=== PATIENT | male | born 1950 | race Caucasian/White ===

== ENCOUNTER 2016-03-07 09:54 | Outpatient (CLI) | payer BC ==
[~2016-03-07 09:54] MED LIST: /FELO5TASR PO; /MESA40TAB PO; /METO25TAB PO; ALLO300T2 PO; ATOR40TA PO; AZAT50TA PO; CALC600T7 PO; CALCTAB68 PO; CARV12.5 PO; CARVEDILOL; CENTTAB PO; CHLO25TA3 PO; CORE25TA PO; INFL10VL IV; LIAL1.2T PO; LOSA100T36 PO; MULTTAB4 PO; OMEG100011 PO; POTA20PO4 PO; POTA20TA PO; PRAD150C PO; PRED20TA PO; PRED5SOL2 PO; PROBCAP4 PO; SPIR25TA2 PO; TYLE325T5 PO; VALA1TAB PO; VIAG100T PO; diphenhydrAMINE 25 MG CAP PO SCH
[2016-03-07] MEDS ORDERED: inFLIXimab INJECTION 400 MG in NS 210 ML IV ONE (10:15)
[2016-03-07] MEDS ORDERED: ACETAMINOPHEN TAB 650MG DOSE (2X325MG) PO ONE (10:15)
[2016-03-07] MEDS ORDERED: NS 1,000 ML IV SCH (10:15)
== END 2016-03-07 13:00 | disposition home or self-care (01) ==
LOC: M INFU 09:54
PROVIDERS: ATTEND Internal Medicine
DX: K51.50 Left sided colitis without complications (principal); Z79.899 Other long term (current) drug therapy
CPT/HCPCS: 96413; 96415; J1745

== ENCOUNTER 2016-05-03 10:31 | Outpatient (CLI) | payer BC ==
[2016-05-03] MEDS ORDERED: NS 1,000 ML IV SCH (10:45)
[2016-05-03] MEDS ORDERED: inFLIXimab INJECTION 400 MG in NS 210 ML IV ONE (11:00)
[2016-05-03] MEDS ORDERED: ACETAMINOPHEN TAB 650MG DOSE (2X325MG) PO ONE (11:00)
== END 2016-05-03 13:45 | disposition home or self-care (01) ==
LOC: M INFU 10:31
PROVIDERS: ATTEND Internal Medicine Nephrology
DX: K51.50 Left sided colitis without complications (principal); I10 Essential (primary) hypertension; E78.5 Hyperlipidemia, unspecified; R00.9 Unspecified abnormalities of heart beat; M19.90 Unspecified osteoarthritis, unspecified site; Z72.0 Tobacco use; Z79.01 Long term (current) use of anticoagulants; Z79.899 Other long term (current) drug therapy
CPT/HCPCS: 96413; 96415; J1745

== ENCOUNTER → 2016-06-08 | Outpatient (CLI) | payer MEDICARE ==
[~2016-06-08] MED LIST changes: -diphenhydrAMINE 25 MG CAP PO SCH
[2016-06-08 19:57] LABS: MEAN CORPUSCULAR HEMOGLOBIN 31.9 pg (27.0-33.0); MEAN CORPUSCULAR HGB CONC 33.5 g/dl (32.0-36.5); MEAN CORPUSCULAR VOLUME 95.3 fl (80.0-96.0); RED CELL DISTRIBUTION WIDTH 13.3 % (11.5-14.5); WHITE BLOOD COUNT 5.8 K/mm3 (4.0-10.0)
[2016-06-08 20:03] LABS: INR 1.09
== END ==
LOC: M WUC 16:33
PROVIDERS: ATTEND Physician Assistant
DX: I48.2 Chronic atrial fibrillation (principal)

== ENCOUNTER → 2016-06-15 | Outpatient (CLI) | payer MEDICARE ==
[2016-06-15 13:34] LABS: INR 1.52
== END ==
LOC: M WUC 09:14
PROVIDERS: ATTEND Physician Assistant
DX: Z51.81 Encounter for therapeutic drug level monitoring (principal); Z79.01 Long term (current) use of anticoagulants; I48.2 Chronic atrial fibrillation

== ENCOUNTER 2016-06-28 09:54 | Outpatient (CLI) | payer MEDICARE ==
[~2016-06-28] VITALS: Ht 175.3 cm; Wt 90.7 kg
[~2016-06-28 09:54] MED LIST changes: +CARVEDILOL PO; +diphenhydrAMINE 25 MG CAP PO SCH
[2016-06-28] MEDS ORDERED: NS 1,000 ML IV SCH (10:00)
[2016-06-28] MEDS ORDERED: ACETAMINOPHEN TAB 650MG DOSE (2X325MG) PO ONE (10:00)
[2016-06-28] MEDS ORDERED: inFLIXimab INJECTION 400 MG in NS 210 ML IV ONE (10:00)
[2016-06-28] MEDS ORDERED: COUM1TAB17 PO (13:20)
[2016-06-28] MEDS ORDERED: CHLO125TA PO (13:25)
[2016-06-28] MEDS ORDERED: ASPI1TAB PO (13:25)
[2016-06-28] MEDS ORDERED: LOPR1TAB6 PO (13:26)
== END 2016-06-28 12:30 | disposition home or self-care (01) ==
LOC: M INFU 09:54
PROVIDERS: ATTEND Internal Medicine
DX: K51.50 Left sided colitis without complications (principal); Z72.0 Tobacco use; Z79.899 Other long term (current) drug therapy
CPT/HCPCS: 96413; 96415; J1745

== ENCOUNTER → 2016-06-29 | Outpatient (REF) | payer MEDICARE ==
[~2016-06-29] MED LIST changes: +ASPI1TAB PO; +CHLO125TA PO; +COUM1TAB17 PO; +LOPR1TAB6 PO; -diphenhydrAMINE 25 MG CAP PO SCH
[2016-06-29 13:46] LABS: INR 3.27
== END ==
LOC: M LAB REF 12:41
PROVIDERS: ATTEND Internal Medicine
DX: I48.2 Chronic atrial fibrillation (principal)

== ENCOUNTER → 2016-07-06 | Outpatient (REF) | payer MEDICARE ==
[2016-07-06 12:06] LABS: MEAN CORPUSCULAR HEMOGLOBIN 31.9 pg (27.0-33.0); MEAN CORPUSCULAR HGB CONC 34.1 g/dl (32.0-36.5); MEAN CORPUSCULAR VOLUME 93.7 fl (80.0-96.0); RED CELL DISTRIBUTION WIDTH 13.7 % (11.5-14.5); WHITE BLOOD COUNT 4.6 K/mm3 (4.0-10.0)
[2016-07-06 12:37] LABS: ALBUMIN 3.9 GM/DL (3.2-5.2); ANION GAP 6 MEQ/L (8-16); BLOOD UREA NITROGEN 20 MG/DL (7-18); CALCIUM LEVEL 9.7 MG/DL (8.8-10.2); CARBON DIOXIDE LEVEL 30 MEQ/L (21-32); CHLORIDE LEVEL 102 MEQ/L (98-107); CREATININE FOR GFR 0.93 MG/DL (0.70-1.30); GLOMERULAR FILTRATION RATE > 60.0 (>49); GLUCOSE, FASTING 96 MG/DL (80-110); PHOSPHORUS LEVEL 3.2 MG/DL (2.5-4.9); POTASSIUM SERUM 4.5 MEQ/L (3.5-5.1); SODIUM LEVEL 138 MEQ/L (136-145)
== END ==
LOC: M CARPUL 11:52
PROVIDERS: ATTEND Physician Assistant
DX: I10 Essential (primary) hypertension (principal)

== ENCOUNTER → 2016-07-12 | Outpatient (REF) | payer MEDICARE ==
[2016-07-12 13:57] LABS: INR 2.95
== END ==
LOC: M LAB REF 12:30
PROVIDERS: ATTEND Internal Medicine
DX: I48.2 Chronic atrial fibrillation (principal); Z51.81 Encounter for therapeutic drug level monitoring; Z79.01 Long term (current) use of anticoagulants

== ENCOUNTER → 2016-07-13 | Outpatient (RCR) | payer MEDICARE | LOC: M CR 06-13 08:15 | PROVIDERS: ATTEND Physician Assistant | DX: Z51.89 Encounter for other specified aftercare (principal); Z95.2 Presence of prosthetic heart valve ==

== ENCOUNTER → 2016-07-15 | Outpatient (REF) | payer MEDICARE | LOC: M LAB REF 09:46 | PROVIDERS: ATTEND Physician Assistant | DX: Z12.11 Encounter for screening for malignant neoplasm of colon (principal); I48.2 Chronic atrial fibrillation ==

== ENCOUNTER 2016-07-20 10:30 | Outpatient (RCR) | payer MEDICARE ==
[2016-12-13] MEDS ORDERED: IMUR50TA6 PO (11:02)
[2016-12-13] MEDS ORDERED: PROBCAP4 PO (11:03)
[2016-12-13] MEDS ORDERED: SILD20TA11 PO (11:13)
== END 2016-08-12 ==
LOC: M CR 10:30
PROVIDERS: ATTEND Physician Assistant
DX: Z51.89 Encounter for other specified aftercare (principal); Z95.2 Presence of prosthetic heart valve

== ENCOUNTER → 2016-08-03 | Outpatient (REF) | payer MEDICARE ==
[2016-08-03 14:16] LABS: INR 2.41
== END ==
LOC: M LAB REF 12:41
PROVIDERS: ATTEND Internal Medicine
DX: Z51.81 Encounter for therapeutic drug level monitoring (principal); Z79.01 Long term (current) use of anticoagulants; I48.2 Chronic atrial fibrillation

== ENCOUNTER 2016-08-15 08:57 | Outpatient (RCR) | payer MEDICARE ==
[2016-12-13] MEDS ORDERED: IMUR50TA6 PO (11:02)
[2016-12-13] MEDS ORDERED: PROBCAP4 PO (11:03)
[2016-12-13] MEDS ORDERED: SILD20TA11 PO (11:13)
== END 2016-09-12 ==
LOC: M CR 08:57
PROVIDERS: ATTEND Physician Assistant
DX: Z51.89 Encounter for other specified aftercare (principal); Z95.2 Presence of prosthetic heart valve

== ENCOUNTER → 2016-08-17 | Outpatient (CLI) | payer MEDICARE ==
[~2016-08-17] MED LIST changes: +IMUR50TA6 PO; +SILD20TA11 PO
--- NOTE | 2016-08-17 19:51 | REP ---
CHEST, TWO VIEWS: HISTORY: Chest pain. A calcified granuloma is present in the left upper lobe. The right lung is clear. The heart is upper limits of normal in size. The pulmonary vasculature is normal in appearance. Degenerative change is present in the thoracic spine. IMPRESSION: Old granulomatous disease. Signed by Trevor Herndon MD 08/17/2016 07:56 P
== END ==
LOC: M WUC 19:12
PROVIDERS: ATTEND Physician Assistant
DX: R07.1 Chest pain on breathing (principal); J98.4 Other disorders of lung

== ENCOUNTER → 2016-08-19 | Outpatient (REF) | payer MEDICARE | LOC: M LAB REF 12:40 | PROVIDERS: ATTEND Internal Medicine | DX: R94.5 Abnormal results of liver function studies (principal); K51.50 Left sided colitis without complications ==

== ENCOUNTER 2016-08-23 09:59 | Outpatient (CLI) | payer MEDICARE ==
[~2016-08-23] VITALS: Ht 149.9 cm; Wt 90.9 kg
[~2016-08-23 09:59] MED LIST changes: -IMUR50TA6 PO; -SILD20TA11 PO; +diphenhydrAMINE 25 MG CAP PO SCH
[2016-08-23] MEDS ORDERED: NS 1,000 ML IV SCH (10:45)
[2016-08-23] MEDS ORDERED: ACETAMINOPHEN TAB 650MG DOSE (2X325MG) PO ONE (10:45)
[2016-08-23] MEDS ORDERED: inFLIXimab INJECTION 400 MG in NS 210 ML IV ONE (10:45)
[2016-12-13] MEDS ORDERED: IMUR50TA6 PO (11:02)
[2016-12-13] MEDS ORDERED: PROBCAP4 PO (11:03)
[2016-12-13] MEDS ORDERED: SILD20TA11 PO (11:13)
== END 2016-08-23 13:30 | disposition home or self-care (01) ==
LOC: M INFU 09:59
PROVIDERS: ATTEND Internal Medicine Nephrology
DX: K51.50 Left sided colitis without complications (principal); Z72.0 Tobacco use; Z79.899 Other long term (current) drug therapy
CPT/HCPCS: 96365; 96366; J1745

== ENCOUNTER → 2016-09-07 | Outpatient (REF) | payer MEDICARE ==
[~2016-09-07] MED LIST changes: +IMUR50TA6 PO; +SILD20TA11 PO; -diphenhydrAMINE 25 MG CAP PO SCH
[2016-09-07 13:48] LABS: INR 3.01
== END ==
LOC: M LAB REF 13:23
PROVIDERS: ATTEND Internal Medicine
DX: I48.2 Chronic atrial fibrillation (principal); Z79.01 Long term (current) use of anticoagulants; Z51.81 Encounter for therapeutic drug level monitoring

== ENCOUNTER → 2016-09-28 | Outpatient (REF) | payer MEDICARE ==
[2016-09-28 20:31] LABS: INR 1.19
== END ==
LOC: M LAB REF 17:44
PROVIDERS: ATTEND Internal Medicine
DX: I48.2 Chronic atrial fibrillation (principal); Z79.01 Long term (current) use of anticoagulants

== ENCOUNTER → 2016-10-10 | Outpatient (REF) | payer MEDICARE ==
[2016-10-10 19:31] LABS: INR 1.67
== END ==
LOC: M LAB REF 17:36
PROVIDERS: ATTEND Internal Medicine
DX: I48.2 Chronic atrial fibrillation (principal)

== ENCOUNTER 2016-10-18 09:56 | Outpatient (CLI) | payer MEDICARE ==
[~2016-10-18] VITALS: Ht 149.9 cm; Wt 90.5 kg
[~2016-10-18 09:56] MED LIST changes: -IMUR50TA6 PO; -SILD20TA11 PO
[2016-10-18] MEDS ORDERED: NS 1,000 ML IV SCH (10:15)
[2016-10-18] MEDS ORDERED: diphenhydrAMINE 25 MG CAP PO ONE (10:15)
[2016-10-18] MEDS ORDERED: ACETAMINOPHEN TAB 650MG DOSE (2X325MG) PO ONE (10:15)
[2016-10-18] MEDS ORDERED: inFLIXimab INJECTION 400 MG in NS 210 ML IV ONE (11:00)
[2016-12-13] MEDS ORDERED: IMUR50TA6 PO (11:02)
[2016-12-13] MEDS ORDERED: PROBCAP4 PO (11:03)
[2016-12-13] MEDS ORDERED: SILD20TA11 PO (11:13)
== END 2016-10-18 13:00 | disposition home or self-care (01) ==
LOC: M INFU 09:56
PROVIDERS: ATTEND Internal Medicine
DX: K51.50 Left sided colitis without complications (principal); Z72.0 Tobacco use; Z79.52 Long term (current) use of systemic steroids; Z79.899 Other long term (current) drug therapy
CPT/HCPCS: 96413; 96415; J1745

== ENCOUNTER → 2016-10-25 | Outpatient (REF) | payer MEDICARE ==
[~2016-10-25] MED LIST changes: +IMUR50TA6 PO; +SILD20TA11 PO
[2016-10-25 12:53] LABS: INR 1.35
== END ==
LOC: M LAB REF 12:21
PROVIDERS: ATTEND Internal Medicine
DX: I48.2 Chronic atrial fibrillation (principal); Z79.01 Long term (current) use of anticoagulants

== ENCOUNTER → 2016-11-02 | Outpatient (REF) | payer MEDICARE ==
[2016-11-02 14:22] LABS: INR 1.75
== END ==
LOC: M LAB REF 12:57
PROVIDERS: ATTEND Internal Medicine
DX: I48.2 Chronic atrial fibrillation (principal); Z79.01 Long term (current) use of anticoagulants

== ENCOUNTER → 2016-11-15 | Outpatient (REF) | payer MEDICARE ==
[2016-11-15 14:32] LABS: INR 1.82
== END ==
LOC: M LAB REF 12:16
PROVIDERS: ATTEND Internal Medicine
DX: I48.2 Chronic atrial fibrillation (principal)

== ENCOUNTER 2017-01-03 05:45 | Emergency (ER) | payer MEDICARE ==
[~2017-01-03] VITALS: Ht 175.3 cm; Wt 88.6 kg
[2017-01-03 06:22] LABS: MEAN CORPUSCULAR HEMOGLOBIN 32.6 pg (27.0-33.0); MEAN CORPUSCULAR HGB CONC 36.2 g/dl (32.0-36.5); MEAN CORPUSCULAR VOLUME 90.2 fl (80.0-96.0); PLATELET COUNT, AUTOMATED 349 10^3/uL (150-450); RED CELL DISTRIBUTION WIDTH 12.6 % (11.5-14.5); WHITE BLOOD COUNT 3.7 10^3/uL (4.0-10.0)
[2017-01-03 06:39] LABS: INR 2.09
[2017-01-03 06:48] VITALS: BP 152/86
== END 2017-01-03 07:02 | disposition home or self-care (01) ==
LOC: M ED 05:45
DX: R04.0 Epistaxis (principal); I10 Essential (primary) hypertension; I48.91 Unspecified atrial fibrillation; E78.00 Pure hypercholesterolemia, unspecified; Z86.73 Personal history of transient ischemic attack (TIA), and cerebral infarction without residual deficits; Z79.01 Long term (current) use of anticoagulants; Z79.82 Long term (current) use of aspirin; Z79.899 Other long term (current) drug therapy

== ENCOUNTER 2017-02-09 10:08 | Outpatient (CLI) | payer MEDICARE ==
[2017-02-09] MEDS: ACETAMINOPHEN TAB 650MG DOSE (2X325MG) PO (11:00)
[2017-02-09] MEDS: diphenhydrAMINE 25 MG CAP PO (11:00)
[2017-02-09] MEDS: INFLIXIMAB BIOSIMILAR 400 MG in NS 210 ML IV (11:02)
[2017-02-09] MEDS: NS 1,000 ML IV (11:02)
== END 2017-02-09 13:15 | disposition home or self-care (01) ==
LOC: M INFU 10:08
DX: K51.50 Left sided colitis without complications (principal); Z86.79 Personal history of other diseases of the circulatory system; Z72.0 Tobacco use; Z79.899 Other long term (current) drug therapy
CPT/HCPCS: 96413

== ENCOUNTER 2017-04-06 10:34 | Outpatient (CLI) | payer MEDICARE ==
[2017-04-06] MEDS: diphenhydrAMINE 25 MG CAP PO (11:00)
[2017-04-06] MEDS: NS 1,000 ML IV (11:00)
[2017-04-06] MEDS: ACETAMINOPHEN TAB 650MG DOSE (2X325MG) PO (11:00)
[2017-04-06] MEDS: INFLIXIMAB BIOSIMILAR 400 MG in NS 210 ML IV (11:21)
== END 2017-04-06 13:40 | disposition home or self-care (01) ==
LOC: M INFU 10:34
DX: K51.50 Left sided colitis without complications (principal); E11.9 Type 2 diabetes mellitus without complications; M12.9 Arthropathy, unspecified; I10 Essential (primary) hypertension; F17.210 Nicotine dependence, cigarettes, uncomplicated; Z79.899 Other long term (current) drug therapy; Z86.73 Personal history of transient ischemic attack (TIA), and cerebral infarction without residual deficits
CPT/HCPCS: Q5102

== ENCOUNTER 2017-06-01 09:07 | Outpatient (CLI) | payer MEDICARE ==
[2017-06-01] MEDS: diphenhydrAMINE 25 MG CAP PO (09:30)
[2017-06-01] MEDS: NS 1,000 ML IV (09:47)
[2017-06-01] MEDS: inFLIXimab INJECTION 400 MG in NS 210 ML IV (09:47)
== END 2017-06-01 12:30 | disposition home or self-care (01) ==
LOC: M INFU 09:07
DX: K51.50 Left sided colitis without complications (principal); E11.9 Type 2 diabetes mellitus without complications; I10 Essential (primary) hypertension; M12.9 Arthropathy, unspecified; F17.210 Nicotine dependence, cigarettes, uncomplicated; I49.9 Cardiac arrhythmia, unspecified; Z79.899 Other long term (current) drug therapy
CPT/HCPCS: J1745

== ENCOUNTER → 2017-06-16 | Outpatient (CLI) | payer MEDICARE | LOC: M WUC 10:27 | DX: M25.551 Pain in right hip (principal); M16.11 Unilateral primary osteoarthritis, right hip | CPT/HCPCS: 73502 ==

== ENCOUNTER 2017-07-27 08:06 | Outpatient (CLI) | payer MEDICARE ==
[2017-07-27] MEDS: FILTER 1.2 MICRON (ADULT TPN/MANNITOL/REMICADE) XX (08:45)
[2017-07-27] MEDS: diphenhydrAMINE INJ 50MG/ML VIAL (J1200) IV (08:45)
[2017-07-27] MEDS: ACETAMINOPHEN TAB 650MG DOSE (2X325MG) PO (08:45)
[2017-07-27] MEDS: inFLIXimab INJECTION 400 MG in NS 210 ML IV (09:01)
[2017-07-27] MEDS: NS 1,000 ML IV (09:02)
== END 2017-07-27 11:20 | disposition home or self-care (01) ==
LOC: M INFU 08:06
DX: K51.50 Left sided colitis without complications (principal); I10 Essential (primary) hypertension; E78.00 Pure hypercholesterolemia, unspecified; M12.9 Arthropathy, unspecified; F17.210 Nicotine dependence, cigarettes, uncomplicated; Z79.82 Long term (current) use of aspirin; Z79.01 Long term (current) use of anticoagulants; Z79.899 Other long term (current) drug therapy
CPT/HCPCS: J1745

== ENCOUNTER 2017-09-21 08:33 | Outpatient (CLI) | payer MEDICARE ==
[2017-09-21] MEDS: diphenhydrAMINE INJ 50MG/ML VIAL (J1200) IV (09:00)
[2017-09-21] MEDS: ACETAMINOPHEN TAB 650MG DOSE (2X325MG) PO (09:00)
[2017-09-21] MEDS ORDERED: NS 1,000 ML IV (09:00)
[2017-09-21] MEDS: FILTER 1.2 MICRON (ADULT TPN/MANNITOL/REMICADE) XX (09:00)
[2017-09-21] MEDS: inFLIXimab INJECTION 400 MG in NS 210 ML IV (09:10)
== END 2017-09-21 11:30 | disposition home or self-care (01) ==
LOC: M INFU 08:33
DX: K51.50 Left sided colitis without complications (principal); Z79.82 Long term (current) use of aspirin; Z79.899 Other long term (current) drug therapy; Z79.01 Long term (current) use of anticoagulants
CPT/HCPCS: J1745

== ENCOUNTER → 2017-09-24 | Outpatient (CLI) | payer MEDICARE | LOC: M WUC 11:30 | DX: S40.012A Contusion of left shoulder, initial encounter (principal); M19.019 Primary osteoarthritis, unspecified shoulder; X58.XXXA Exposure to other specified factors, initial encounter; Y92.9 Unspecified place or not applicable; Y93.9 Activity, unspecified; Y99.9 Unspecified external cause status | CPT/HCPCS: 73000 ==

== ENCOUNTER 2017-11-22 14:03 | Outpatient (CLI) | payer MEDICARE ==
[2017-11-22] MEDS: ACETAMINOPHEN TAB 650MG DOSE (2X325MG) PO (15:00)
[2017-11-22] MEDS ORDERED: NS 1,000 ML IV (15:00)
[2017-11-22] MEDS: diphenhydrAMINE INJ 50MG/ML VIAL (J1200) IV (15:00)
[2017-11-22] MEDS: inFLIXimab INJECTION 400 MG in NS 210 ML IV (15:21)
[2017-11-22] MEDS: FILTER 1.2 MICRON (ADULT TPN/MANNITOL/REMICADE) XX (15:29)
== END 2017-11-22 17:45 | disposition home or self-care (01) ==
LOC: M INFU 14:03
DX: K51.50 Left sided colitis without complications (principal)
CPT/HCPCS: J1745

== ENCOUNTER → 2018-01-01 | Outpatient (CLI) | payer MEDICARE ==
[2018-01-01 16:16] LABS: INR 4.21; PROTHROMBIN TIME 41.6 SECONDS (12.1-14.4)
== END ==
LOC: M LAB 14:55
DX: I48.2 Chronic atrial fibrillation (principal)
CPT/HCPCS: 85610

== ENCOUNTER → 2018-01-01 | Outpatient (CLI) | payer MEDICARE | LOC: M LAB 14:58 | DX: I48.2 Chronic atrial fibrillation (principal) ==

== ENCOUNTER 2018-01-17 10:09 | Outpatient (CLI) | payer MEDICARE ==
[2018-01-17] MEDS: diphenhydrAMINE 25MG IV PRIOR TO INFUSION IV (10:30)
[2018-01-17] MEDS: NS 1,000 ML IV (10:30)
[2018-01-17] MEDS ORDERED: FILTER 1.2 MICRON (ADULT TPN/MANNITOL/REMICADE) XX (10:30)
[2018-01-17] MEDS: ACETAMINOPHEN 650MG PO PRIOR TO INFUSION PO (10:30)
[2018-01-17] MEDS ORDERED: inFLIXimab INJECTION 400 MG in NS 210 ML IV (11:00)
== END 2018-01-17 13:30 | disposition home or self-care (01) ==
LOC: M INFU 10:09
DX: K51.50 Left sided colitis without complications (principal)
CPT/HCPCS: 96413

== ENCOUNTER 2018-02-07 10:30 | Emergency (ER) | payer MEDICARE ==
[~2018-02-07] VITALS: Ht 175.3 cm; Wt 82.7 kg
[~2018-02-07 10:30] MED LIST changes: -IMUR50TA6 PO; +IMUR50TA7 PO
[2018-02-07] MEDS ORDERED: SULF500T2 (10:45)
[2018-02-07] MEDS ORDERED: WARF-23 PO (10:45)
[2018-02-07] MEDS ORDERED: SPIR-10 (10:45)
[2018-02-07] MEDS ORDERED: CARV25TA (10:45)
[2018-02-07 11:31] LABS: HEMATOCRIT 37.7 % (42.0-52.0); HEMOGLOBIN 13.5 g/dl (13.5-17.5); MEAN CORPUSCULAR HEMOGLOBIN 33.8 pg (27.0-33.0); MEAN CORPUSCULAR HGB CONC 35.8 g/dl (32.0-36.5); MEAN CORPUSCULAR VOLUME 94.3 fl (80.0-96.0); PLATELET COUNT, AUTOMATED 263 10^3/uL (150-450)
[2018-02-07 12:22] LABS: INR 3.42; PROTHROMBIN TIME 35.3 SECONDS (12.1-14.4)
[2018-02-07 16:18] VITALS: BP 190/94
== END 2018-02-07 16:51 | disposition home or self-care (01) ==
LOC: M ED 10:30
DX: R04.0 Epistaxis (principal); I10 Essential (primary) hypertension; I48.91 Unspecified atrial fibrillation; I34.0 Nonrheumatic mitral (valve) insufficiency; Z87.19 Personal history of other diseases of the digestive system; Z79.899 Other long term (current) drug therapy; Z79.01 Long term (current) use of anticoagulants

== ENCOUNTER → 2018-02-11 | Outpatient (CLI) | payer MEDICARE ==
[~2018-02-11] MED LIST changes: +CARV25TA; +SPIR-10; +SULF500T2; +WARF-23 PO
[2018-02-11 14:13] LABS: BACTERIA, URINE AUTO NEGATIVE (NEGATIVE); RBC, URINE AUTO 6 /HPF (0-3); SQUAMOUS EPITHELIAL CELL UR AU 0 /HPF (0-6); WBC, URINE AUTO 0 /HPF (0-3)
== END ==
LOC: M WUC 12:10
PROVIDERS: ATTEND Urology
DX: R31.21 Asymptomatic microscopic hematuria (principal); N40.0 Benign prostatic hyperplasia without lower urinary tract symptoms; K51.50 Left sided colitis without complications; R19.7 Diarrhea, unspecified; K57.30 Diverticulosis of large intestine without perforation or abscess without bleeding; R94.5 Abnormal results of liver function studies

== ENCOUNTER → 2018-02-11 | Outpatient (CLI) | payer MEDICARE ==
[2018-02-11 14:13] LABS: HEMATOCRIT 36.1 % (42.0-52.0); HEMOGLOBIN 12.8 g/dl (13.5-17.5); MEAN CORPUSCULAR HEMOGLOBIN 33.7 pg (27.0-33.0); MEAN CORPUSCULAR HGB CONC 35.5 g/dl (32.0-36.5); PLATELET COUNT, AUTOMATED 254 10^3/uL (150-450); WHITE BLOOD COUNT 4.2 10^3/uL (4.0-10.0)
[2018-02-11 14:26] LABS: ALBUMIN 3.9 GM/DL (3.2-5.2); BILIRUBIN,DIRECT 0.2 MG/DL (0.0-0.2); BILIRUBIN,TOTAL 0.9 MG/DL (0.2-1.0); TOTAL PROTEIN 7.4 GM/DL (6.4-8.2)
== END ==
LOC: M WUC 12:14
PROVIDERS: ATTEND Internal Medicine Gastroenterology
DX: K51.50 Left sided colitis without complications (principal); R19.7 Diarrhea, unspecified; K57.30 Diverticulosis of large intestine without perforation or abscess without bleeding; R94.5 Abnormal results of liver function studies

== ENCOUNTER 2018-03-14 09:52 | Outpatient (CLI) | payer MEDICARE ==
[~2018-03-14] VITALS: Ht 175.3 cm; Wt 97.3 kg
[2018-03-14 09:59] VITALS: BP 160/85
[2018-03-14 11:00] VITALS: BP 134/89
[2018-03-14] MEDS ORDERED: NS 1,000 ML IV SCH (11:00)
[2018-03-14] MEDS ORDERED: ACETAMINOPHEN 650MG PO PRIOR TO INFUSION PO ONE (11:00)
[2018-03-14] MEDS ORDERED: diphenhydrAMINE 25MG IV PRIOR TO INFUSION IV ONE (11:00)
[2018-03-14] MEDS ORDERED: FILTER 1.2 MICRON (ADULT TPN/MANNITOL/REMICADE) XX ONE (11:00)
[2018-03-14] MEDS ORDERED: inFLIXimab INJECTION 400 MG in NS 210 ML IV ONE (11:00)
[2018-03-14 13:00] VITALS: BP 131/89
== END 2018-03-14 13:00 | disposition home or self-care (01) ==
LOC: M INFU 09:52
PROVIDERS: ATTEND Internal Medicine
DX: K51.90 Ulcerative colitis, unspecified, without complications (principal)
CPT/HCPCS: 96413; 96415; J1745

== ENCOUNTER → 2018-03-29 | Outpatient (CLI) | payer MEDICARE ==
[2018-03-29 13:49] LABS: ALBUMIN 4.1 GM/DL (3.2-5.2); ALT/SGPT 31 U/L (12-78); BILIRUBIN,TOTAL 1.3 MG/DL (0.2-1.0); BLOOD UREA NITROGEN 20 MG/DL (7-18); CALCIUM LEVEL 9.7 MG/DL (8.8-10.2); CARBON DIOXIDE LEVEL 33 MEQ/L (21-32); CHLORIDE LEVEL 99 MEQ/L (98-107); CHOLESTEROL LEVEL 225 MG/DL (<200); GLOMERULAR FILTRATION RATE > 60.0 (>49); GLUCOSE, FASTING 110 MG/DL (70-100); HDL CHOLESTEROL 76 MG/DL (>40); LDL CHOLESTEROL 129 MG/DL (<100); NON-HDL-C 149 MG/DL; POTASSIUM SERUM 3.4 MEQ/L (3.5-5.1); SODIUM LEVEL 138 MEQ/L (136-145); TOTAL PROTEIN 7.4 GM/DL (6.4-8.2); TRIGLYCERIDES LEVEL 101 MG/DL (<150)
== END ==
LOC: M WUC 08:58
PROVIDERS: ATTEND Physician Assistant
DX: E78.00 Pure hypercholesterolemia, unspecified (principal)

== ENCOUNTER 2018-05-16 09:51 | Outpatient (CLI) | payer MEDICARE ==
[2018-05-16] VITALS (8 sets, daily range): BP systolic 133–143; BP diastolic 79–89
[~2018-05-16 09:51] MED LIST changes: -/FELO5TASR PO; -/METO25TAB PO; -ASPI1TAB PO; +ASPI81TA26 PO; -AZAT50TA PO; +AZAT50TA24 PO; +FELO1TAB12 PO; +IMUR50TA10 PO; -IMUR50TA7 PO; +METO1TAB87 PO
[2018-05-16] MEDS ORDERED: FILTER 1.2 MICRON (ADULT TPN/MANNITOL/REMICADE) XX ONE (10:15)
[2018-05-16] MEDS ORDERED: NS 1,000 ML IV SCH (10:15)
[2018-05-16] MEDS ORDERED: ACETAMINOPHEN 650MG PO PRIOR TO INFUSION PO ONE (10:30)
[2018-05-16] MEDS ORDERED: diphenhydrAMINE 25MG IV PRIOR TO INFUSION IV ONE (10:30)
[2018-05-16] MEDS ORDERED: inFLIXimab INJECTION 400 MG in NS 210 ML IV ONE (11:00)
== END 2018-05-16 13:05 | disposition home or self-care (01) ==
LOC: M INFU 09:51
PROVIDERS: ATTEND Internal Medicine
DX: K51.90 Ulcerative colitis, unspecified, without complications (principal)
CPT/HCPCS: 96413; 96415; J1745

== ENCOUNTER 2018-06-03 09:41 | Emergency (ER) | payer MEDICARE ==
[~2018-06-03] VITALS: Ht 175.3 cm; Wt 88.1 kg
[2018-06-03] MEDS ORDERED: IPRATROPIUM 0.5MG/ALBUTEROL 2.5MG INH SOL UD 3ML (DUONEB)(J7620) NEB PRN (10:45)
--- NOTE | 2018-06-03 10:54 | REP ---
Coughing and wheezing. COMPARISON: None. There has been previous median sternotomy. The heart is not enlarged. The lung hernandez are clear. The pleural angles are sharp. The osseous structures are within normal limits. IMPRESSION: No acute cardiopulmonary disease. Electronically Signed by Igor Teague DO 06/03/2018 02:31 P
[2018-06-03 11:23] VITALS: BP 158/89
[2018-06-03] MEDS ORDERED: PROAAER10 INH (11:37)
== END 2018-06-03 11:40 | disposition home or self-care (01) ==
LOC: M ED 09:41
DX: R06.2 Wheezing (principal); I10 Essential (primary) hypertension; E78.5 Hyperlipidemia, unspecified; Z86.73 Personal history of transient ischemic attack (TIA), and cerebral infarction without residual deficits; K52.9 Noninfective gastroenteritis and colitis, unspecified; Z95.4 Presence of other heart-valve replacement; Z79.01 Long term (current) use of anticoagulants; Z79.899 Other long term (current) drug therapy

== ENCOUNTER 2018-07-04 09:50 | Outpatient (CLI) | payer MEDICARE ==
[~2018-07-04] VITALS: Ht 175.3 cm; Wt 81.8 kg
[~2018-07-04 09:50] MED LIST changes: +PROAAER10 INH
[2018-07-04] MEDS ORDERED: NS 1,000 ML IV SCH (10:00)
[2018-07-04] MEDS ORDERED: ACETAMINOPHEN 650MG PO PRIOR TO INFUSION PO ONE (10:00)
[2018-07-04] MEDS ORDERED: inFLIXimab INJECTION 400 MG in NS 210 ML IV ONE (10:00)
[2018-07-04] MEDS ORDERED: FILTER 1.2 MICRON (ADULT TPN/MANNITOL/REMICADE) XX ONE (10:00)
[2018-07-04] MEDS ORDERED: diphenhydrAMINE 25MG IV PRIOR TO INFUSION IV ONE (10:00)
[2018-07-04 10:20] VITALS: BP 150/80
[2018-07-04 11:20] VITALS: BP_SYST 138; BP_SYST 148; BP_DIAS 80; BP_DIAS 81
[2018-07-04 11:35] VITALS: BP 144/84
== END 2018-07-04 11:40 | disposition home or self-care (01) ==
LOC: M INFU 09:50
PROVIDERS: ATTEND Internal Medicine
DX: K51.50 Left sided colitis without complications (principal)
CPT/HCPCS: 96413; J1745

== ENCOUNTER 2018-09-05 09:59 | Outpatient (CLI) | payer MEDICARE ==
[~2018-09-05] VITALS: Ht 171.4 cm; Wt 81.8 kg
[2018-09-05 10:10] VITALS: BP 138/98
[2018-09-05] MEDS ORDERED: FILTER 1.2 MICRON (ADULT TPN/MANNITOL/REMICADE) XX ONE (10:15)
[2018-09-05] MEDS ORDERED: ACETAMINOPHEN 650MG PO PRIOR TO INFUSION PO ONE (10:30)
[2018-09-05] MEDS ORDERED: diphenhydrAMINE 25MG IV PRIOR TO INFUSION IV ONE (10:30)
[2018-09-05] MEDS ORDERED: NS 1,000 ML IV SCH (10:30)
[2018-09-05] MEDS ORDERED: inFLIXimab INJECTION 400 MG in NS 210 ML IV ONE (11:00)
[2018-09-05 11:30] VITALS: BP 158/96
== END 2018-09-05 11:40 | disposition home or self-care (01) ==
LOC: M INFU 09:59
PROVIDERS: ATTEND Internal Medicine Gastroenterology
DX: K51.50 Left sided colitis without complications (principal)
CPT/HCPCS: 96413; J1745

== ENCOUNTER → 2018-10-01 | Outpatient (CLI) | payer MEDICARE ==
[2018-10-01 16:46] LABS: BASO % 0.4 % (0.0-1.0); EOS # 0.2 10^3/uL (0.0-0.50); EOS % 2.5 % (0.0-3.0); HEMATOCRIT 34.7 % (42.0-52.0); HEMOGLOBIN 12.3 g/dl (13.5-17.5); LYMPH # 1.2 10^3/uL (1.5-4.5); LYMPH % 16.7 % (24.0-44.0); MEAN CORPUSCULAR HEMOGLOBIN 33.4 pg (27.0-33.0); MEAN CORPUSCULAR HGB CONC 35.4 g/dl (32.0-36.5); MEAN CORPUSCULAR VOLUME 94.3 fl (80.0-96.0); NEUTROPHILS # 4.9 10^3/uL (1.8-7.7); NEUTROPHILS % 67.1 % (36.0-66.0); PLATELET COUNT, AUTOMATED 233 10^3/uL (150-450); RED BLOOD COUNT 3.68 10^6/uL (4.30-6.10); WHITE BLOOD COUNT 7.3 10^3/uL (4.0-10.0)
[2018-10-01 17:05] LABS: ALBUMIN 3.9 GM/DL (3.2-5.2); PERCENT SATURATION 28.8 % (19.7-50.0)
[2018-10-01 17:12] LABS: HEMOGLOBIN A1c 5.3 %
== END ==
LOC: M WUC 12:25
PROVIDERS: ATTEND Orthopaedic Surgery
DX: Z01.818 Encounter for other preprocedural examination (principal); D63.8 Anemia in other chronic diseases classified elsewhere; M16.11 Unilateral primary osteoarthritis, right hip; Z86.39 Personal history of other endocrine, nutritional and metabolic disease

== ENCOUNTER 2018-10-08 09:56 | Outpatient (CLI) | payer MEDICARE ==
[~2018-10-08] VITALS: Ht 175.3 cm; Wt 81.6 kg
[2018-10-08 10:00] VITALS: BP 145/91
[2018-10-08] MEDS ORDERED: FILTER 1.2 MICRON (ADULT TPN/MANNITOL/REMICADE) XX ONE (11:00)
[2018-10-08] MEDS ORDERED: inFLIXimab INJECTION 400 MG in NS 210 ML IV ONE (11:00)
[2018-10-08] MEDS ORDERED: NS 1,000 ML IV SCH (11:00)
[2018-10-08] MEDS ORDERED: ACETAMINOPHEN 650MG PO PRIOR TO INFUSION PO ONE (11:00)
[2018-10-08] MEDS ORDERED: diphenhydrAMINE 25MG IV PRIOR TO INFUSION IV ONE (11:00)
== END 2018-10-08 12:00 | disposition home or self-care (01) ==
LOC: M INFU 09:56
PROVIDERS: ATTEND Internal Medicine Gastroenterology
DX: K51.50 Left sided colitis without complications (principal)
CPT/HCPCS: 96413; J1745

== ENCOUNTER 2018-11-28 09:58 | Outpatient (CLI) | payer MEDICARE ==
[~2018-11-28] VITALS: Ht 175.3 cm; Wt 81.6 kg
[2018-11-28 10:00] VITALS: BP 119/62
[2018-11-28] MEDS ORDERED: FILTER 1.2 MICRON (ADULT TPN/MANNITOL/REMICADE) XX ONE (10:15)
[2018-11-28] MEDS ORDERED: diphenhydrAMINE 25MG IV PRIOR TO INFUSION IV ONE (10:15)
[2018-11-28] MEDS ORDERED: ACETAMINOPHEN TAB 650MG DOSE (2X325MG) PO ONE (10:15)
[2018-11-28] MEDS ORDERED: NS 1,000 ML IV SCH (10:15)
[2018-11-28] MEDS ORDERED: inFLIXimab INJECTION 400 MG in NS 210 ML IV ONE (10:15)
[2018-11-28 12:10] VITALS: BP 124/69
== END 2018-11-28 12:10 | disposition home or self-care (01) ==
LOC: M INFU 09:58
PROVIDERS: ATTEND Internal Medicine Gastroenterology
DX: K51.50 Left sided colitis without complications (principal)
CPT/HCPCS: 96413; J1745

== ENCOUNTER 2019-01-23 10:03 | Outpatient (CLI) | payer MEDICARE ==
[~2019-01-23] VITALS: Ht 175.3 cm; Wt 81.8 kg
[2019-01-23 10:15] VITALS: BP 155/90
[2019-01-23] MEDS ORDERED: NS 1,000 ML IV SCH (10:15)
[2019-01-23] MEDS ORDERED: ACETAMINOPHEN 650MG PO PRIOR TO INFUSION PO ONE (10:15)
[2019-01-23] MEDS ORDERED: inFLIXimab INJECTION 400 MG in NS 210 ML IV ONE (10:15)
[2019-01-23] MEDS ORDERED: diphenhydrAMINE 25MG IV PRIOR TO INFUSION IV ONE (10:15)
[2019-01-23 11:48] VITALS: BP 150/88
== END 2019-01-23 11:44 | disposition home or self-care (01) ==
LOC: M INFU 10:03
PROVIDERS: ATTEND Internal Medicine Gastroenterology
DX: K51.50 Left sided colitis without complications (principal)
CPT/HCPCS: 96413; J1745

== ENCOUNTER 2019-01-25 11:32 | Emergency (ER) | payer MEDICARE ==
[~2019-01-25] VITALS: Ht 175.3 cm; Wt 87.7 kg
[2019-01-25 12:19] LABS: BASO % 0.4 % (0.0-1.0); EOS # 0.3 10^3/uL (0.0-0.5); HEMATOCRIT 39.8 % (42.0-52.0); HEMOGLOBIN 13.5 g/dl (13.5-17.5); LYMPH # 0.9 10^3/uL (1.5-5.0); LYMPH % 20.4 % (24.0-44.0); MEAN CORPUSCULAR HEMOGLOBIN 31.3 pg (27.0-33.0); MEAN CORPUSCULAR HGB CONC 33.9 g/dl (32.0-36.5); MEAN CORPUSCULAR VOLUME 92.3 fl (80.0-96.0); MONO # 0.5 10^3/uL (0.0-0.8); MONO % 10.3 % (0.0-5.0); NEUTROPHILS # 2.8 10^3/uL (1.5-8.5); NEUTROPHILS % 61.7 % (36.0-66.0); PLATELET COUNT, AUTOMATED 259 10^3/uL (150-450); RED BLOOD COUNT 4.31 10^6/uL (4.30-6.10); WHITE BLOOD COUNT 4.5 10^3/uL (4.0-10.0)
[2019-01-25] MEDS ORDERED: NORV5TAB PO (12:23)
[2019-01-25 12:30] LABS: INR 2.22; PARTIAL THROMBOPLASTIN TIME 34.9 SECONDS (25.0-38.4); PROTHROMBIN TIME 24.4 SECONDS (11.8-14.0)
[2019-01-25 12:47] LABS: ALT/SGPT 27 U/L (12-78); BILIRUBIN,TOTAL 0.6 MG/DL (0.2-1.0); BLOOD UREA NITROGEN 15 MG/DL (7-18); CALCIUM LEVEL 10.1 MG/DL (8.8-10.2); CARBON DIOXIDE LEVEL 30 MEQ/L (21-32); CHLORIDE LEVEL 101 MEQ/L (98-107); CREATININE FOR GFR 0.96 MG/DL (0.70-1.30); GLOMERULAR FILTRATION RATE > 60.0 (>49); GLUCOSE, FASTING 162 MG/DL (70-100); POTASSIUM SERUM 3.3 MEQ/L (3.5-5.1); SODIUM LEVEL 139 MEQ/L (136-145); TOTAL PROTEIN 7.5 GM/DL (6.4-8.2)
[2019-01-25] MEDS ORDERED: MECL-68 PO (14:52)
[2019-01-25 15:00] VITALS: BP 164/99
--- NOTE | 2019-01-25 16:29 | REP ---
CT BRAIN WITHOUT CONTRAST: HISTORY: Dizziness. Comparison brain CT study is from October 12, 2014. CT FINDINGS: Preliminary digital position clerk radiograph is unremarkable. Bone window settings demonstrate an intact bony calvarium. There is moderate vascular calcification in the distal carotid arteries bilaterally. The visualized paranasal sinuses are clear. No intraorbital abnormalities appreciated. Dickinson-white differentiation pattern is normal above and below the tentorium. There is no evidence of intracranial mass, extra-axial fluid collection, midline shift, or infarct. There is minimal diffuse atrophy. IMPRESSION: Vascular calcification. No acute intracranial abnormality. Electronically Signed by Esteban Umana MD 01/25/2019 05:05 P
--- NOTE | 2019-01-25 20:16 | ECGEPIP ---
[facility] [place] - ED Test Date: 2019-01-25 Pat Name: ROLANDA BOX Department: Room: - Gender: Male Cout[place]ier: : 1950 Requested By: Blaze Hernandez Order Number: [id number] Reading MD: Maryann Allen Measurements Intervals Harman Rate: 76 P: AL: 0 QRS: 65 QRSD: 93 T: 35 QT: 364 QTc: 409 Interpretive Statements ATRIAL FIBRILLATION INCOMPLETE RIGHT BUNDLE BRANCH BLOCK ANTEROSEPTAL MYOCARDIAL INFARCTION, PROBABLY OLD NO PRIOR Electronically Signed on 01-25-2019 20:16:33 EST by Maryann Allen
== END 2019-01-25 15:16 | disposition home or self-care (01) ==
LOC: M ED 11:32
DX: H81.10 Benign paroxysmal vertigo, unspecified ear (principal); I48.91 Unspecified atrial fibrillation; I45.19 Other right bundle-branch block; I65.23 Occlusion and stenosis of bilateral carotid arteries; Z79.01 Long term (current) use of anticoagulants; Z79.899 Other long term (current) drug therapy

== ENCOUNTER 2019-03-20 10:03 | Outpatient (CLI) | payer MEDICARE ==
[~2019-03-20] VITALS: Ht 175.3 cm; Wt 81.6 kg
[~2019-03-20 10:03] MED LIST changes: +MECL1TAB31 PO; +NORV5TAB PO
[2019-03-20 10:05] VITALS: BP 186/90
[2019-03-20] MEDS ORDERED: NS 1,000 ML IV SCH (10:15)
[2019-03-20] MEDS ORDERED: ACETAMINOPHEN 650MG PO PRIOR TO INFUSION PO ONE (10:30)
[2019-03-20] MEDS ORDERED: diphenhydrAMINE 25MG IV PRIOR TO INFUSION IV ONE (10:30)
[2019-03-20] MEDS ORDERED: inFLIXimab INJECTION 400 MG in NS 210 ML IV ONE (11:00)
== END 2019-03-20 12:00 | disposition home or self-care (01) ==
LOC: M INFU 10:03
PROVIDERS: ATTEND Internal Medicine Gastroenterology
DX: K51.50 Left sided colitis without complications (principal)
CPT/HCPCS: 96413; J1745

== ENCOUNTER → 2019-04-03 | Outpatient (CLI) | payer MEDICARE ==
--- NOTE | 2019-04-03 13:39 | REP ---
Clinical: Asthma. Technique: PA and lateral. Comparison: 06/03/2018. Findings: Mediastinum and cardiac silhouette are stable with evidence for prior sternotomy and cardiac valve repair. Lung hernandez demonstrate coarsened increased interstitial markings consistent with a history of asthma. No focal consolidation or effusion. No pneumothorax. Impression: Coarsened markings consistent with asthma/chronic reactive airway disease. No focal consolidation or effusion. Electronically Signed by Romero Rios MD 04/03/2019 01:31 P
== END ==
LOC: M WUC 13:12
PROVIDERS: ATTEND Physician Assistant
DX: J45.21 Mild intermittent asthma with (acute) exacerbation (principal)

== ENCOUNTER 2019-05-15 09:58 | Outpatient (CLI) | payer MEDICARE ==
[~2019-05-15] VITALS: Ht 175.3 cm; Wt 81.8 kg
[2019-05-15 10:40] VITALS: BP 150/83
[2019-05-15] MEDS ORDERED: ACETAMINOPHEN 650MG PO PRIOR TO INFUSION PO ONE (11:00)
[2019-05-15] MEDS ORDERED: NS 1,000 ML IV SCH (11:00)
[2019-05-15] MEDS ORDERED: inFLIXimab INJECTION 400 MG in NS 210 ML IV ONE (11:00)
[2019-05-15] MEDS ORDERED: diphenhydrAMINE 25MG IV PRIOR TO INFUSION IV ONE (11:00)
[2019-05-15 11:57] VITALS: BP 140/85
== END 2019-05-15 12:00 | disposition home or self-care (01) ==
LOC: M INFU 09:58
PROVIDERS: ATTEND Internal Medicine Gastroenterology
DX: K51.50 Left sided colitis without complications (principal)
CPT/HCPCS: 96413; J1745

== ENCOUNTER 2019-07-10 10:06 | Outpatient (CLI) | payer MEDICARE ==
[~2019-07-10] VITALS: Ht 175.3 cm; Wt 81.8 kg
[2019-07-10] MEDS ORDERED: inFLIXimab INJECTION 400 MG in NS 210 ML IV ONE (10:15)
[2019-07-10] MEDS ORDERED: diphenhydrAMINE 25MG CAP PO ONE (10:15)
[2019-07-10] MEDS ORDERED: NS 1,000 ML IV SCH (10:15)
[2019-07-10] MEDS ORDERED: ACETAMINOPHEN 650MG ER TAB (TYLENOL ARTHRITIS) PO ONE (10:15)
[2019-07-10 10:26] VITALS: BP 141/84
[2019-07-10 11:25] VITALS: BP 122/82
== END 2019-07-10 11:20 | disposition home or self-care (01) ==
LOC: M INFU 10:06
PROVIDERS: ATTEND Internal Medicine Gastroenterology
DX: K51.90 Ulcerative colitis, unspecified, without complications (principal)
CPT/HCPCS: 96413; J1745

== ENCOUNTER → 2019-08-23 | Outpatient (CLI) | payer MEDICARE ==
[2019-08-28 05:07] LABS: PSA TOTAL 3.3 ng/mL (0.0-4.0)
== END ==
LOC: M WUC 11:17
PROVIDERS: ATTEND Urology
DX: N40.0 Benign prostatic hyperplasia without lower urinary tract symptoms (principal); R97.20 Elevated prostate specific antigen [PSA]; K51.50 Left sided colitis without complications; R94.5 Abnormal results of liver function studies; K57.30 Diverticulosis of large intestine without perforation or abscess without bleeding; K76.89 Other specified diseases of liver; Z11.1 Encounter for screening for respiratory tuberculosis

== ENCOUNTER → 2019-08-23 | Outpatient (CLI) | payer MEDICARE | LOC: M WUC 11:13 | PROVIDERS: ATTEND Internal Medicine Gastroenterology | DX: K51.50 Left sided colitis without complications (principal); R94.5 Abnormal results of liver function studies; K57.30 Diverticulosis of large intestine without perforation or abscess without bleeding; K76.89 Other specified diseases of liver; Z11.1 Encounter for screening for respiratory tuberculosis ==

== ENCOUNTER → 2019-09-05 | Outpatient (CLI) | payer MEDICARE ==
[~2019-09-05] VITALS: Ht 175.3 cm; Wt 81.8 kg
[~2019-09-05] MED LIST changes: +ACETAMINOPHEN 650MG PO PRIOR TO INFUSION PO ONE; +NS 1,000 ML IV SCH; +diphenhydrAMINE 25MG IV PRIOR TO INFUSION IV ONE; +inFLIXimab INJECTION 400 MG in NS 210 ML IV ONE
[2019-09-05 11:05] VITALS: BP 143/81
== END ==
LOC: M INFU 10:00
PROVIDERS: ATTEND Internal Medicine Gastroenterology
DX: K51.50 Left sided colitis without complications (principal)
CPT/HCPCS: 96413; J1745

== ENCOUNTER 2019-11-05 10:02 | Outpatient (CLI) | payer MEDICARE ==
[~2019-11-05] VITALS: Ht 175.3 cm; Wt 81.6 kg
[2019-11-05 10:27] VITALS: BP 160/84
[2019-11-05 10:32] VITALS: BP 160/84
[2019-11-05 10:48] VITALS: BP 152/92
[2019-11-05 11:50] VITALS: BP 140/82
== END 2019-11-05 11:50 | disposition home or self-care (01) ==
LOC: M INFU 10:02
PROVIDERS: ATTEND Internal Medicine Gastroenterology
DX: K51.50 Left sided colitis without complications (principal)
CPT/HCPCS: 96413; J1745

== ENCOUNTER 2020-01-01 10:01 | Outpatient (CLI) | payer MEDICARE ==
[~2020-01-01] VITALS: Ht 175.3 cm; Wt 81.6 kg
[2020-01-01 10:20] VITALS: BP 152/80
[2020-01-01 11:05] VITALS: BP_SYST 144; BP_SYST 152; BP_DIAS 72; BP_DIAS 80
[2020-01-01 11:50] VITALS: BP 138/70
== END 2020-01-01 12:00 | disposition home or self-care (01) ==
LOC: M INFU 10:01
PROVIDERS: ATTEND Internal Medicine Gastroenterology
DX: K51.90 Ulcerative colitis, unspecified, without complications (principal)
CPT/HCPCS: 96413; J1745

== ENCOUNTER → 2020-01-13 | Outpatient (CLI) | payer MEDICARE ==
[~2020-01-13] MED LIST changes: -ACETAMINOPHEN 650MG PO PRIOR TO INFUSION PO ONE; -NS 1,000 ML IV SCH; -diphenhydrAMINE 25MG IV PRIOR TO INFUSION IV ONE; -inFLIXimab INJECTION 400 MG in NS 210 ML IV ONE
== END ==
LOC: M LABSMTC 10:44 → EEVIPCON 10:44
PROVIDERS: ATTEND Family Medicine
DX: Z20.828 Contact with and (suspected) exposure to other viral communicable diseases (principal)

== ENCOUNTER 2020-02-26 10:02 | Outpatient (CLI) | payer MEDICARE ==
[~2020-02-26] VITALS: Ht 175.3 cm; Wt 81.6 kg
[~2020-02-26 10:02] MED LIST changes: +ACETAMINOPHEN 650MG PO PRIOR TO INFUSION PO ONE; +NS 1,000 ML IV SCH; +diphenhydrAMINE 25MG IV PRIOR TO INFUSION IV ONE; +inFLIXimab INJECTION 400 MG in NS 210 ML IV ONE
[2020-02-26 10:19] VITALS: BP 172/92
[2020-02-26 10:20] VITALS: BP 172/92
[2020-02-26 11:00] VITALS: BP 132/80
[2020-02-26 12:01] VITALS: BP 159/89
== END 2020-02-26 12:00 | disposition home or self-care (01) ==
LOC: M INFU 10:02
PROVIDERS: ATTEND Internal Medicine Gastroenterology
DX: K51.90 Ulcerative colitis, unspecified, without complications (principal)
CPT/HCPCS: 96413; J1745

== ENCOUNTER → 2020-03-03 | Outpatient (CLI) | payer MEDICARE ==
[~2020-03-03] MED LIST changes: -ACETAMINOPHEN 650MG PO PRIOR TO INFUSION PO ONE; -NS 1,000 ML IV SCH; -diphenhydrAMINE 25MG IV PRIOR TO INFUSION IV ONE; -inFLIXimab INJECTION 400 MG in NS 210 ML IV ONE
[2020-03-03 12:10] LABS: HEMATOCRIT 38.1 % (42.0-52.0); MEAN CORPUSCULAR HEMOGLOBIN 32.3 pg (27.0-33.0); MEAN CORPUSCULAR HGB CONC 34.1 g/dl (32.0-36.5); MEAN CORPUSCULAR VOLUME 94.5 fl (80.0-96.0); PLATELET COUNT, AUTOMATED 243 10^3/uL (150-450); RED BLOOD COUNT 4.03 10^6/uL (4.30-6.10); WHITE BLOOD COUNT 5.4 10^3/uL (4.0-10.0)
[2020-03-03 12:33] LABS: ERYTHROCYTE SEDIMENTATION RATE 16 mm/hr (0-20)
[2020-03-03 12:42] LABS: ALBUMIN 4.2 GM/DL (3.2-5.2); ALT/SGPT 36 U/L (12-78); BILIRUBIN,TOTAL 1.4 MG/DL (0.2-1.0); BLOOD UREA NITROGEN 20 MG/DL (7-18); CALCIUM LEVEL 10.6 MG/DL (8.8-10.2); CARBON DIOXIDE LEVEL 29 MEQ/L (21-32); CHLORIDE LEVEL 102 MEQ/L (98-107); CREATININE FOR GFR 0.88 MG/DL (0.70-1.30); GLOMERULAR FILTRATION RATE > 60.0 (>49); GLUCOSE, FASTING 127 MG/DL (70-100); POTASSIUM SERUM 3.6 MEQ/L (3.5-5.1); SODIUM LEVEL 139 MEQ/L (136-145); TOTAL PROTEIN 7.5 GM/DL (6.4-8.2)
== END ==
LOC: M WUC 09:39
PROVIDERS: ATTEND Internal Medicine Gastroenterology
DX: K51.50 Left sided colitis without complications (principal); R94.5 Abnormal results of liver function studies; K57.30 Diverticulosis of large intestine without perforation or abscess without bleeding; Z47.89 Encounter for other orthopedic aftercare; T56.891A Toxic effect of other metals, accidental (unintentional), initial encounter; Z13.88 Encounter for screening for disorder due to exposure to contaminants; Z96.641 Presence of right artificial hip joint; R97.20 Elevated prostate specific antigen [PSA]

== ENCOUNTER → 2020-03-03 | Outpatient (CLI) | payer MEDICARE ==
[2020-03-04 23:08] LABS: PSA TOTAL 2.8 ng/mL (0.0-4.0)
== END ==
LOC: M WUC 09:47
PROVIDERS: ATTEND Urology
DX: R97.20 Elevated prostate specific antigen [PSA] (principal)

== ENCOUNTER → 2020-03-03 | Outpatient (CLI) | payer MEDICARE | LOC: M WUC 09:43 | PROVIDERS: ATTEND Orthopaedic Surgery | DX: Z47.89 Encounter for other orthopedic aftercare (principal); T56.891A Toxic effect of other metals, accidental (unintentional), initial encounter; Z13.88 Encounter for screening for disorder due to exposure to contaminants; Z96.641 Presence of right artificial hip joint ==

== ENCOUNTER 2020-04-29 10:01 | Outpatient (CLI) | payer MEDICARE ==
[~2020-04-29] VITALS: Ht 175.3 cm; Wt 81.6 kg
[~2020-04-29 10:01] MED LIST changes: +ACETAMINOPHEN 650MG PO PRIOR TO INFUSION PO ONE; +NS 1,000 ML IV SCH; +diphenhydrAMINE 25MG IV PRIOR TO INFUSION IV ONE; +inFLIXimab INJECTION 400 MG in NS 210 ML IV ONE
[2020-04-29 10:05] VITALS: BP 168/87
[2020-04-29 10:45] VITALS: BP 137/79
[2020-04-29 12:00] VITALS: BP_SYST 168; BP_DIAS 87; BP_DIAS 91
== END 2020-04-29 12:00 | disposition home or self-care (01) ==
LOC: M INFU 10:01
PROVIDERS: ATTEND Internal Medicine Gastroenterology
DX: K51.90 Ulcerative colitis, unspecified, without complications (principal)
CPT/HCPCS: 96365; 96375; 96413; J1745

== ENCOUNTER 2020-06-17 09:53 | Outpatient (CLI) | payer MEDICARE ==
[~2020-06-17] VITALS: Ht 175.3 cm; Wt 81.8 kg
[2020-06-17 10:00] VITALS: BP 165/87
[2020-06-17 11:00] VITALS: BP 154/81
[2020-06-17] MEDS ORDERED: ELIQ2.5T PO (11:09)
[2020-06-17] MEDS ORDERED: ZETI10TA16 PO (11:14)
[2020-06-17] MEDS ORDERED: VITA-243 PO (11:15)
[2020-06-17 12:00] VITALS: BP 161/87
== END 2020-06-17 12:00 | disposition home or self-care (01) ==
LOC: M INFU 09:53
PROVIDERS: ATTEND Internal Medicine Gastroenterology
DX: K51.50 Left sided colitis without complications (principal)
CPT/HCPCS: 96413; J1745

== ENCOUNTER 2020-08-12 10:09 | Outpatient (CLI) | payer MEDICARE ==
[~2020-08-12] VITALS: Ht 175.3 cm; Wt 81.8 kg
[~2020-08-12 10:09] MED LIST changes: +ELIQ2.5T PO; +VITA-243 PO; +ZETI10TA16 PO
[2020-08-12 10:15] VITALS: BP 155/82
[2020-08-12 11:15] VITALS: BP 123/77
[2020-08-12 12:09] VITALS: BP 144/81
[2020-08-12 12:25] VITALS: BP 138/76
== END 2020-08-12 12:25 | disposition home or self-care (01) ==
LOC: M INFU 10:09
PROVIDERS: ATTEND Internal Medicine Gastroenterology
DX: K51.50 Left sided colitis without complications (principal)
CPT/HCPCS: 96413; J1745

== ENCOUNTER 2020-10-09 11:35 | Outpatient (CLI) | payer MEDICARE ==
[~2020-10-09] VITALS: Ht 175.3 cm; Wt 81.8 kg
[2020-10-09 11:45] VITALS: BP 156/78
[2020-10-09 12:35] VITALS: BP 132/84
[2020-10-09 13:20] VITALS: BP 167/79
== END 2020-10-09 13:25 | disposition home or self-care (01) ==
LOC: M INFU 11:35
PROVIDERS: ATTEND Internal Medicine Gastroenterology
DX: K51.50 Left sided colitis without complications (principal)
CPT/HCPCS: 96413; J1745

== ENCOUNTER 2020-12-16 10:12 | Outpatient (CLI) | payer MEDICARE ==
[~2020-12-16] VITALS: Ht 175.3 cm; Wt 81.6 kg
[2020-12-16 10:15] VITALS: BP 157/84
[2020-12-16 11:15] VITALS: BP 138/79
[2020-12-16 12:08] VITALS: BP 142/81
== END 2020-12-16 12:40 | disposition home or self-care (01) ==
LOC: M INFU 10:12
PROVIDERS: ATTEND Internal Medicine Gastroenterology
DX: K51.50 Left sided colitis without complications (principal)
CPT/HCPCS: 96413; J1745

== ENCOUNTER 2021-02-17 09:56 | Outpatient (CLI) | payer MEDICARE ==
[~2021-02-17] VITALS: Ht 175.3 cm; Wt 81.6 kg
[~2021-02-17 09:56] MED LIST changes: -ACETAMINOPHEN 650MG PO PRIOR TO INFUSION PO ONE; -NS 1,000 ML IV SCH; -diphenhydrAMINE 25MG IV PRIOR TO INFUSION IV ONE; -inFLIXimab INJECTION 400 MG in NS 210 ML IV ONE
[2021-02-17 10:00] VITALS: BP 171/89
[2021-02-17] MEDS ORDERED: ACETAMINOPHEN 650MG PO PRIOR TO INFUSION PO ONE (10:00)
[2021-02-17] MEDS ORDERED: diphenhydrAMINE 25MG IV PRIOR TO INFUSION IV ONE (10:00)
[2021-02-17] MEDS ORDERED: inFLIXimab INJECTION 400 MG in NS 210 ML IV ONE (10:00)
[2021-02-17] MEDS ORDERED: NS 1,000 ML IV SCH (10:00)
[2021-02-17 10:53] VITALS: BP 155/87
[2021-02-17 11:45] VITALS: BP 171/88
== END 2021-02-17 12:00 | disposition home or self-care (01) ==
LOC: M INFU 09:56
PROVIDERS: ATTEND Internal Medicine Gastroenterology
DX: K51.50 Left sided colitis without complications (principal)
CPT/HCPCS: 96413; J1745

== ENCOUNTER 2021-04-14 10:04 | Outpatient (CLI) | payer MEDICARE ==
[~2021-04-14] VITALS: Ht 175.3 cm; Wt 90.0 kg
[~2021-04-14 10:04] MED LIST changes: +ACETAMINOPHEN 650MG PO PRIOR TO INFUSION PO ONE; +NS 1,000 ML IV SCH; +diphenhydrAMINE 25MG IV PRIOR TO INFUSION IV ONE; +inFLIXimab INJECTION 400 MG in NS 210 ML IV ONE
[2021-04-14 10:10] VITALS: BP 146/82
[2021-04-14 11:05] VITALS: BP 157/81
[2021-04-14 12:00] VITALS: BP 162/91
== END 2021-04-14 12:00 | disposition home or self-care (01) ==
LOC: M INFU 10:04
PROVIDERS: ATTEND Internal Medicine Gastroenterology
DX: K51.50 Left sided colitis without complications (principal)
CPT/HCPCS: 96413; J1745

== ENCOUNTER → 2021-04-20 | Outpatient (CLI) | payer MEDICARE ==
[~2021-04-20] MED LIST changes: -ACETAMINOPHEN 650MG PO PRIOR TO INFUSION PO ONE; -NS 1,000 ML IV SCH; -diphenhydrAMINE 25MG IV PRIOR TO INFUSION IV ONE; -inFLIXimab INJECTION 400 MG in NS 210 ML IV ONE
== END ==
LOC: M WUC 10:11
PROVIDERS: ATTEND Student in an Organized Health Care Education/Training Program
DX: K51.50 Left sided colitis without complications (principal); R94.5 Abnormal results of liver function studies; N40.0 Benign prostatic hyperplasia without lower urinary tract symptoms; R97.20 Elevated prostate specific antigen [PSA]

== ENCOUNTER → 2021-04-20 | Outpatient (CLI) | payer MEDICARE | LOC: M WUC 10:08 | PROVIDERS: ATTEND Urology | DX: N40.0 Benign prostatic hyperplasia without lower urinary tract symptoms (principal); R97.20 Elevated prostate specific antigen [PSA] ==

== ENCOUNTER 2021-06-16 10:22 | Outpatient (CLI) | payer MEDICARE ==
[~2021-06-16] VITALS: Ht 175.3 cm; Wt 81.6 kg
[~2021-06-16 10:22] MED LIST changes: +ACETAMINOPHEN 650MG PO PRIOR TO INFUSION PO ONE; +diphenhydrAMINE 25MG IV PRIOR TO INFUSION IV ONE; +inFLIXimab INJECTION 400 MG in NS 210 ML IV ONE
[2021-06-16 10:40] VITALS: BP 180/97
[2021-06-16 11:30] VITALS: BP 158/94
[2021-06-16 12:35] VITALS: BP 168/89
== END 2021-06-16 12:35 | disposition home or self-care (01) ==
LOC: M INFU 10:22
PROVIDERS: ATTEND Internal Medicine Gastroenterology
DX: K51.50 Left sided colitis without complications (principal)
CPT/HCPCS: 96413; J1745

== ENCOUNTER → 2021-06-30 | Outpatient (REF) | payer MEDICARE ==
[~2021-06-30] MED LIST changes: -ACETAMINOPHEN 650MG PO PRIOR TO INFUSION PO ONE; -diphenhydrAMINE 25MG IV PRIOR TO INFUSION IV ONE; -inFLIXimab INJECTION 400 MG in NS 210 ML IV ONE
== END ==
LOC: M LABWUC 12:31
PROVIDERS: ATTEND Urology
DX: R97.20 Elevated prostate specific antigen [PSA] (principal)

== ENCOUNTER 2021-08-11 10:15 | Outpatient (CLI) | payer MEDICARE ==
[~2021-08-11] VITALS: Ht 175.3 cm; Wt 90.9 kg
[~2021-08-11 10:15] MED LIST changes: +ACETAMINOPHEN 650MG PO PRIOR TO INFUSION PO ONE; +NS 1,000 ML IV SCH; +diphenhydrAMINE 25MG IV PRIOR TO INFUSION IV ONE; +inFLIXimab INJECTION 400 MG in NS 210 ML IV ONE
[2021-08-11 11:00] VITALS: BP 140/82
[2021-08-11 11:05] VITALS: BP 140/82
[2021-08-11 11:55] VITALS: BP 140/70
== END 2021-08-11 11:55 | disposition home or self-care (01) ==
LOC: M INFU 10:15
PROVIDERS: ATTEND Internal Medicine Gastroenterology
DX: K51.50 Left sided colitis without complications (principal)
CPT/HCPCS: 96413; J1745

== ENCOUNTER 2021-10-13 10:05 | Outpatient (CLI) | payer MEDICARE ==
[~2021-10-13] VITALS: Ht 175.3 cm; Wt 81.7 kg
[2021-10-13 10:05] VITALS: BP 169/79
[2021-10-13 11:29] VITALS: BP 162/85
[2021-10-13 11:30] VITALS: BP 162/85
[2021-10-13 12:20] VITALS: BP 165/88
== END 2021-10-13 12:20 | disposition home or self-care (01) ==
LOC: M INFU 10:05
PROVIDERS: ATTEND Internal Medicine Gastroenterology
DX: K51.90 Ulcerative colitis, unspecified, without complications (principal)
CPT/HCPCS: 96413; J1745

== ENCOUNTER → 2021-12-01 | Outpatient (CLI) | payer MEDICARE ==
[~2021-12-01] MED LIST changes: -ACETAMINOPHEN 650MG PO PRIOR TO INFUSION PO ONE; -NS 1,000 ML IV SCH; -diphenhydrAMINE 25MG IV PRIOR TO INFUSION IV ONE; -inFLIXimab INJECTION 400 MG in NS 210 ML IV ONE
== END ==
LOC: M WUC 10:15
PROVIDERS: ATTEND Internal Medicine Gastroenterology
DX: R04.2 Hemoptysis (principal); R49.0 Dysphonia; K51.50 Left sided colitis without complications

== ENCOUNTER 2021-12-15 10:12 | Outpatient (CLI) | payer MEDICARE ==
[~2021-12-15] VITALS: Ht 175.3 cm; Wt 81.8 kg
[~2021-12-15 10:12] MED LIST changes: +ACETAMINOPHEN 650MG PO PRIOR TO INFUSION PO ONE; +NS 1,000 ML IV SCH; +diphenhydrAMINE 25MG IV PRIOR TO INFUSION IV ONE; +inFLIXimab INJECTION 400 MG in NS 210 ML IV ONE
[2021-12-15 10:20] VITALS: BP 130/70
[2021-12-15 11:15] VITALS: BP 120/68
[2021-12-15 12:10] VITALS: BP 143/73
== END 2021-12-15 12:10 | disposition home or self-care (01) ==
LOC: M INFU 10:12
PROVIDERS: ATTEND Internal Medicine
DX: K51.90 Ulcerative colitis, unspecified, without complications (principal)
CPT/HCPCS: 96413; J1745

== ENCOUNTER → 2022-02-09 | Outpatient (CLI) | payer MEDICARE ==
[2022-02-09 10:30] VITALS: BP 141/83
[2022-02-09 10:52] VITALS: BP 146/89
[2022-02-09 12:36] VITALS: BP 160/89
== END ==
LOC: M INFU 10:30
PROVIDERS: ATTEND Internal Medicine Gastroenterology
DX: K51.90 Ulcerative colitis, unspecified, without complications (principal)
CPT/HCPCS: 96413; J1745

== ENCOUNTER 2022-04-06 10:01 | Outpatient (CLI) | payer MEDICARE ==
[~2022-04-06] VITALS: Ht 175.3 cm; Wt 90.0 kg
[~2022-04-06 10:01] MED LIST changes: -diphenhydrAMINE 25MG IV PRIOR TO INFUSION IV ONE; +diphenhydrAMINE 25MG PO PRIOR TO INFUSION PO ONE
[2022-04-06 10:20] VITALS: BP 152/84
[2022-04-06 11:50] VITALS: BP 156/89
== END 2022-04-06 11:54 | disposition home or self-care (01) ==
LOC: M INFU 10:01
PROVIDERS: ATTEND Internal Medicine Gastroenterology
DX: K51.50 Left sided colitis without complications (principal)
CPT/HCPCS: 96413; J1745

== ENCOUNTER 2022-06-01 10:00 | Outpatient (CLI) | payer MEDICARE ==
[~2022-06-01] VITALS: Ht 175.3 cm; Wt 90.0 kg
[2022-06-01 10:00] VITALS: BP 134/82
[2022-06-01 11:16] VITALS: BP 136/82
[2022-06-01 12:05] VITALS: BP 157/93
== END 2022-06-01 12:05 ==
LOC: M INFU 10:00
PROVIDERS: ATTEND Internal Medicine Gastroenterology
DX: K51.50 Left sided colitis without complications (principal)
CPT/HCPCS: 96413; J1745

== ENCOUNTER 2022-07-27 10:03 | Outpatient (CLI) | payer MEDICARE ==
[~2022-07-27] VITALS: Ht 175.3 cm; Wt 90.0 kg
[~2022-07-27 10:03] MED LIST changes: +diphenhydrAMINE 25MG IV PRIOR TO INFUSION IV ONE; -diphenhydrAMINE 25MG PO PRIOR TO INFUSION PO ONE
[2022-07-27 10:11] VITALS: BP 131/70; O2SAT 96
[2022-07-27 11:54] VITALS: BP 141/80; O2SAT 98
== END 2022-07-27 11:55 ==
LOC: M INFU 10:03
PROVIDERS: ATTEND Internal Medicine Gastroenterology
DX: K51.90 Ulcerative colitis, unspecified, without complications (principal)
CPT/HCPCS: 96413; J1745

== ENCOUNTER → 2022-08-05 | Outpatient (CLI) | payer MEDICARE ==
[~2022-08-05] MED LIST changes: -ACETAMINOPHEN 650MG PO PRIOR TO INFUSION PO ONE; -NS 1,000 ML IV SCH; -diphenhydrAMINE 25MG IV PRIOR TO INFUSION IV ONE; -inFLIXimab INJECTION 400 MG in NS 210 ML IV ONE
[2022-08-05 12:00] LABS: MAGNESIUM LEVEL 1.6 MG/DL (1.8-2.4)
[2022-08-05 12:01] LABS: TOTAL 25(OH) VITAMIN D 73.7 NG/ML (20.0-100.0)
== END ==
LOC: M WUC 08:21
PROVIDERS: ATTEND Internal Medicine Gastroenterology
DX: K51.50 Left sided colitis without complications (principal); Z86.010 Personal history of colon polyps; K57.30 Diverticulosis of large intestine without perforation or abscess without bleeding; K21.9 Gastro-esophageal reflux disease without esophagitis; K22.70 Barrett's esophagus without dysplasia; E55.9 Vitamin D deficiency, unspecified; R97.20 Elevated prostate specific antigen [PSA]; R94.5 Abnormal results of liver function studies; Z79.899 Other long term (current) drug therapy

== ENCOUNTER → 2022-08-05 | Outpatient (CLI) | payer MEDICARE | LOC: M WUC 08:24 | PROVIDERS: ATTEND Urology | DX: R97.20 Elevated prostate specific antigen [PSA] (principal) ==

== ENCOUNTER 2022-09-21 10:00 | Outpatient (CLI) | payer MEDICARE ==
[~2022-09-21] VITALS: Ht 175.3 cm; Wt 87.2 kg
[2022-09-21 10:00] VITALS: BP 143/71; O2SAT 96
[2022-09-21] MEDS ORDERED: ACETAMINOPHEN 650MG PO PRIOR TO INFUSION PO ONE (10:15)
[2022-09-21] MEDS ORDERED: NS 1,000 ML IV SCH (10:15)
[2022-09-21] MEDS ORDERED: inFLIXimab INJECTION 400 MG in NS 210 ML IV ONE (10:15)
[2022-09-21] MEDS ORDERED: diphenhydrAMINE 25MG IV PRIOR TO INFUSION IV ONE (10:15)
[2022-09-21 11:00] VITALS: BP 135/80; O2SAT 94
[2022-09-21 11:50] VITALS: BP 142/76; TEMP 36.1; O2SAT 94
== END 2022-09-21 11:50 | disposition home or self-care (01) ==
LOC: M INFU 10:00
PROVIDERS: ATTEND Internal Medicine Gastroenterology
DX: K51.90 Ulcerative colitis, unspecified, without complications (principal)
CPT/HCPCS: 96413; J1745

== ENCOUNTER → 2022-11-24 | Outpatient (REF) | payer MEDICARE ==
[~2022-11-24] MED LIST changes: +EZET10TA58 PO; +MECL-209 PO; -MECL1TAB31 PO; -ZETI10TA16 PO
== END ==
LOC: M WUC 16:24
PROVIDERS: ATTEND Internal Medicine Gastroenterology
DX: R94.5 Abnormal results of liver function studies (principal); K76.89 Other specified diseases of liver; Z86.010 Personal history of colon polyps; K51.50 Left sided colitis without complications; E83.42 Hypomagnesemia

== ENCOUNTER 2022-11-28 10:40 | Outpatient (CLI) | payer MEDICARE ==
[~2022-11-28] VITALS: Ht 175.3 cm; Wt 87.0 kg
[~2022-11-28 10:40] MED LIST changes: +ACETAMINOPHEN 650MG PO PRIOR TO INFUSION PO ONE; +NS 1,000 ML IV SCH; +diphenhydrAMINE 25MG IV PRIOR TO INFUSION IV ONE
[2022-11-28] MEDS ORDERED: inFLIXimab INJECTION 400 MG in NS 210 ML IV ONE (11:00)
[2022-11-28 11:50] VITALS: BP 153/82; TEMP 98.1; O2SAT 96
[2022-11-28 12:05] VITALS: BP 148/78; TEMP 98.1; O2SAT 96
[2022-11-28 13:00] VITALS: BP 155/88; TEMP 97.8; O2SAT 95
== END 2022-11-28 13:10 ==
LOC: M INFU 10:40
PROVIDERS: ATTEND Internal Medicine Gastroenterology
DX: K51.90 Ulcerative colitis, unspecified, without complications (principal)
CPT/HCPCS: 96413; J1745

== ENCOUNTER → 2022-12-06 | Outpatient (CLI) | payer MEDICARE ==
[~2022-12-06] MED LIST changes: -ACETAMINOPHEN 650MG PO PRIOR TO INFUSION PO ONE; -NS 1,000 ML IV SCH; -diphenhydrAMINE 25MG IV PRIOR TO INFUSION IV ONE
== END ==
LOC: M RAD 09:41
PROVIDERS: ATTEND Internal Medicine Gastroenterology
DX: R94.5 Abnormal results of liver function studies (principal); K76.89 Other specified diseases of liver; K51.50 Left sided colitis without complications; Z86.010 Personal history of colon polyps; E83.42 Hypomagnesemia; K80.20 Calculus of gallbladder without cholecystitis without obstruction

== ENCOUNTER 2023-01-25 10:05 | Outpatient (CLI) | payer MEDICARE ==
[~2023-01-25] VITALS: Ht 175.3 cm; Wt 89.0 kg
[~2023-01-25 10:05] MED LIST changes: +ACETAMINOPHEN 650MG PO PRIOR TO INFUSION PO ONE; +NS 1,000 ML IV SCH; +diphenhydrAMINE 25MG IV PRIOR TO INFUSION IV ONE; +inFLIXimab INJECTION 400 MG in NS 210 ML IV ONE
[2023-01-25 10:19] VITALS: BP 147/78; O2SAT 94
[2023-01-25 11:19] VITALS: BP 134/83; O2SAT 93
[2023-01-25 12:00] VITALS: BP 146/81; O2SAT 97
== END 2023-01-25 12:00 | disposition home or self-care (01) ==
LOC: M INFU 10:05
PROVIDERS: ATTEND Internal Medicine Gastroenterology
DX: K51.90 Ulcerative colitis, unspecified, without complications (principal)
CPT/HCPCS: 96413; J1745

== ENCOUNTER 2023-03-27 09:35 | Outpatient (CLI) | payer MEDICARE ==
[~2023-03-27] VITALS: Ht 175.3 cm; Wt 88.6 kg
[~2023-03-27 09:35] MED LIST changes: -ACETAMINOPHEN 650MG PO PRIOR TO INFUSION PO ONE; -NS 1,000 ML IV SCH; -diphenhydrAMINE 25MG IV PRIOR TO INFUSION IV ONE; -inFLIXimab INJECTION 400 MG in NS 210 ML IV ONE
[2023-03-27 09:40] VITALS: BP 156/82; O2SAT 98
[2023-03-27] MEDS ORDERED: NS 1,000 ML IV SCH (09:45)
[2023-03-27] MEDS ORDERED: diphenhydrAMINE 25MG IV PRIOR TO INFUSION IV ONE (09:45)
[2023-03-27] MEDS ORDERED: ACETAMINOPHEN 650MG PO PRIOR TO INFUSION PO ONE (09:45)
[2023-03-27] MEDS: inFLIXimab INJECTION 400 MG in NS 210 ML IV ONE (10:23)
[2023-03-27 10:40] VITALS: BP 138/80; O2SAT 96
[2023-03-27 11:28] VITALS: BP 168/87; O2SAT 96
== END 2023-03-27 11:30 | disposition home or self-care (01) ==
LOC: M INFU 09:35
PROVIDERS: ATTEND Internal Medicine Gastroenterology
DX: K51.90 Ulcerative colitis, unspecified, without complications (principal)
CPT/HCPCS: 96413; J1745

== ENCOUNTER → 2023-04-12 | Outpatient (REF) | payer MEDICARE | LOC: M LAB REF 11:18 | PROVIDERS: ATTEND Internal Medicine Gastroenterology | DX: R19.7 Diarrhea, unspecified (principal) ==

== ENCOUNTER → 2023-05-23 | Outpatient (CLI) | payer MEDICARE ==
[~2023-05-23] VITALS: Ht 175.3 cm; Wt 87.7 kg
[~2023-05-23] MED LIST changes: +ACETAMINOPHEN 650MG PO PRIOR TO INFUSION PO ONE; +NS 1,000 ML IV SCH; +diphenhydrAMINE 25MG IV PRIOR TO INFUSION IV ONE
[2023-05-23 10:10] VITALS: BP 150/90; O2SAT 98
[2023-05-23] MEDS: inFLIXimab INJECTION 400 MG in NS 210 ML IV ONE (10:54)
[2023-05-23 11:15] VITALS: BP 147/85; O2SAT 97
[2023-05-23 12:00] VITALS: BP 171/84; O2SAT 97
== END ==
LOC: M INFU 10:01
PROVIDERS: ATTEND Internal Medicine Gastroenterology
DX: K51.90 Ulcerative colitis, unspecified, without complications (principal)
CPT/HCPCS: 96413; J1745

== ENCOUNTER → 2023-05-24 | Outpatient (CLI) | payer MEDICARE ==
[~2023-05-24] MED LIST changes: -ACETAMINOPHEN 650MG PO PRIOR TO INFUSION PO ONE; -NS 1,000 ML IV SCH; -diphenhydrAMINE 25MG IV PRIOR TO INFUSION IV ONE
== END ==
LOC: M RAD 13:29
PROVIDERS: ATTEND Physician Assistant
DX: I65.21 Occlusion and stenosis of right carotid artery (principal)

== ENCOUNTER 2023-07-17 10:10 | Outpatient (CLI) | payer MEDICARE ==
[~2023-07-17] VITALS: Ht 175.3 cm; Wt 86.8 kg
[2023-07-17 10:10] VITALS: BP 140/73; O2SAT 95
[~2023-07-17 10:10] MED LIST changes: +ACETAMINOPHEN 650MG PO PRIOR TO INFUSION PO ONE; +NS 1,000 ML IV SCH; +diphenhydrAMINE 25MG IV PRIOR TO INFUSION IV ONE
[2023-07-17] MEDS: inFLIXimab INJECTION 400 MG in NS 210 ML IV ONE (10:58)
[2023-07-17 11:23] VITALS: BP 125/68; O2SAT 94
[2023-07-17 12:05] VITALS: BP 124/77; O2SAT 95
== END 2023-07-17 12:05 ==
LOC: M INFU 10:10
PROVIDERS: ATTEND Internal Medicine Gastroenterology
DX: K51.90 Ulcerative colitis, unspecified, without complications (principal)
CPT/HCPCS: 96413; J1745

== ENCOUNTER → 2023-08-09 | Outpatient (REF) | payer MEDICARE ==
[~2023-08-09] MED LIST changes: -ACETAMINOPHEN 650MG PO PRIOR TO INFUSION PO ONE; -NS 1,000 ML IV SCH; -diphenhydrAMINE 25MG IV PRIOR TO INFUSION IV ONE
== END ==
LOC: M LABWUC 10:47
PROVIDERS: ATTEND Urology
DX: N28.1 Cyst of kidney, acquired (principal)

== ENCOUNTER 2023-09-14 09:58 | Outpatient (CLI) | payer MEDICARE ==
[~2023-09-14 09:58] MED LIST changes: +ACETAMINOPHEN 650MG PO PRIOR TO INFUSION PO ONE; +NS 1,000 ML IV SCH; +diphenhydrAMINE 25MG IV PRIOR TO INFUSION IV ONE
[2023-09-14 10:10] VITALS: BP 152/78; O2SAT 94
[2023-09-14] MEDS: inFLIXimab INJECTION 400 MG in NS 210 ML IV ONE (10:42)
[2023-09-14 11:50] VITALS: BP 134/71; O2SAT 96
== END 2023-09-14 11:45 ==
LOC: M INFU 09:58
PROVIDERS: ATTEND Internal Medicine Gastroenterology
DX: K51.90 Ulcerative colitis, unspecified, without complications (principal)
CPT/HCPCS: 96413; J1745

== ENCOUNTER 2023-10-12 16:39 | Observation (INO) | payer MEDICARE ==
[~2023-10-12] VITALS: Ht 175.3 cm; Wt 86.4 kg
[~2023-10-12 16:39] MED LIST changes: -ACETAMINOPHEN 650MG PO PRIOR TO INFUSION PO ONE; -NS 1,000 ML IV SCH; -SPIR-10; +SPIR-10 PO; -diphenhydrAMINE 25MG IV PRIOR TO INFUSION IV ONE
[2023-10-12] MEDS ORDERED: ISOVUE-370 76% 100ML VIAL As Ordered ONE (17:03)
[2023-10-12 17:39] LABS: INR 1.23; PARTIAL THROMBOPLASTIN TIME 31.6 SECONDS (24.8-34.2); PROTHROMBIN TIME 15.1 SECONDS (12.5-14.5)
[2023-10-12 17:50] LABS: BLOOD UREA NITROGEN 21 MG/DL (9-23); CALCIUM LEVEL 10.2 MG/DL (8.3-10.6); CARBON DIOXIDE LEVEL 29 MMOL/L (20-31); CHLORIDE LEVEL 98 MMOL/L (98-107); CREATININE FOR GFR 0.94 MG/DL (0.70-1.30); GLOMERULAR FILTRATION RATE > 60.0 (>42); GLUCOSE, FASTING 105 MG/DL (74-106); POTASSIUM SERUM 3.4 MMOL/L (3.5-5.1); SODIUM LEVEL 137 MMOL/L (136-145)
[2023-10-12 17:54] LABS: BASO % 0.5 % (0.0-1.0); EOS # 0.2 10^3/uL (0.0-0.5); EOS % 2.9 % (0.0-3.0); HEMATOCRIT 40.2 % (42.0-52.0); HEMOGLOBIN 14.8 g/dl (13.5-17.5); LYMPH # 1.3 10^3/uL (1.5-5.0); MEAN CORPUSCULAR HEMOGLOBIN 33.3 pg (27.0-33.0); MEAN CORPUSCULAR HGB CONC 36.8 g/dl (32.0-36.5); MEAN CORPUSCULAR VOLUME 90.5 fl (80.0-96.0); MONO # 0.8 10^3/uL (0.0-0.8); MONO % 12.9 % (2.0-8.0); NEUTROPHILS # 3.9 10^3/uL (1.5-8.5); NEUTROPHILS % 62.4 % (36.0-66.0); PLATELET COUNT, AUTOMATED 222 10^3/uL (150-450); RED BLOOD COUNT 4.44 10^6/uL (4.30-6.10); WHITE BLOOD COUNT 6.3 10^3/uL (4.0-10.0)
[2023-10-12 18:37] VITALS: BP 131/71; TEMP 98.6
[2023-10-12] MEDS: MIDAZOLAM INJ 2MG/2ML VIAL IV STA (18:55)
[2023-10-12] MEDS ORDERED: CENT1TAB PO (19:17)
[2023-10-12] MEDS ORDERED: LOSA100T46 PO (19:17)
[2023-10-12] MEDS ORDERED: VALT500T PO (19:17)
[2023-10-12] MEDS ORDERED: LACT1CAP53 PO (19:17)
[2023-10-12] MEDS ORDERED: ATOR80TA59 PO (19:17)
[2023-10-12] MEDS ORDERED: POTA-136 PO (19:20)
[2023-10-12] MEDS ORDERED: OMEP-173 PO (19:20)
[2023-10-12] MEDS ORDERED: JARD1TAB PO (19:20)
[2023-10-12] MEDS ORDERED: D200CAP3 PO (19:20)
[2023-10-12] MEDS ORDERED: FINA5TAB2 PO (19:20)
[2023-10-12] MEDS ORDERED: MAGN400T35 PO (19:21)
[2023-10-12] MEDS ORDERED: ZINC50TA26 PO (19:21)
[2023-10-12] MEDS ORDERED: AMLO1TAB25 PO (19:23)
[2023-10-12] MEDS ORDERED: ELIQ5TAB PO (19:23)
[2023-10-12] MEDS ORDERED: HOME MED LIST COMPLETE! XX SCH (19:30)
[2023-10-12 20:07] VITALS: BP 129/71
[2023-10-12 20:45] LABS: ALBUMIN 4.2 G/DL (3.2-5.2); BILIRUBIN,DIRECT 0.7 MG/DL (<0.4); BILIRUBIN,TOTAL 2.2 MG/DL (0.3-1.2); MAGNESIUM LEVEL 1.7 MG/DL (1.8-2.4); TOTAL PROTEIN 7.4 G/DL (5.7-8.2)
[2023-10-12] MEDS ORDERED: LORazepam 2 MG TAB PO PRN (20:45)
[2023-10-12] MEDS: MULTIVITAMINS/MINERALS THERAP 1 TAB PO SCH (21:01)
[2023-10-12] MEDS: FOLIC ACID 1MG TAB PO SCH (21:01)
[2023-10-12] MEDS: POTASSIUM CHLORIDE 10MEQ SR TABLET PO ONE (21:01)
[2023-10-12] MEDS: THIAMINE 100 MG TAB PO SCH (21:01)
[2023-10-12 21:09] LABS: CK-MB VALUE MASS 1.5 NG/ML (<3.6)
[2023-10-12 21:10] LABS: MB/CK RELATIVE INDEX 0.89 (< OR =4)
[2023-10-12 21:21] VITALS: BP 148/70; TEMP 97
[2023-10-12] MEDS: OMEPRAZOLE 20MG CAP PO SCH (21:45)
[2023-10-12] MEDS: MAGNESIUM OXIDE 400MG TAB (MAG-OX) PO ONE (21:45)
[2023-10-12] MEDS: CARVedilol 12.5 MG TAB PO SCH (21:45)
[2023-10-12] MEDS: ATORVASTATIN 20 MG TAB PO SCH (21:46)
[2023-10-12] MEDS: FINASTERIDE 5MG TAB PO SCH (21:46)
[2023-10-12] MEDS: APIXABAN 5 MG TAB (ELIQUIS) PO SCH (21:46)
[2023-10-12 23:24] VITALS: BP 133/76; TEMP 98; O2SAT 97
[2023-10-12] MEDS ORDERED: LORazepam 1 MG TAB PO PRN (23:47)
[2023-10-13] VITALS (10 sets, daily range): BP systolic 124–138; BP diastolic 66–76; TEMP 97.9–99; O2SAT 92–97
[2023-10-13 06:11] LABS: HEMOGLOBIN A1c 5.7 % (4.0-6.0)
[2023-10-13 06:12] LABS: HEMATOCRIT 39.1 % (42.0-52.0); HEMOGLOBIN 14.2 g/dl (13.5-17.5); MEAN CORPUSCULAR HGB CONC 36.3 g/dl (32.0-36.5); MEAN CORPUSCULAR VOLUME 90.9 fl (80.0-96.0); PLATELET COUNT, AUTOMATED 179 10^3/uL (150-450); WHITE BLOOD COUNT 5.5 10^3/uL (4.0-10.0)
[2023-10-13 06:23] LABS: ALKALINE PHOSPHATASE 44 U/L (46-116); ALT/SGPT 39 U/L (7.0-40); AST/SGOT 28 U/L (<34); BILIRUBIN,TOTAL 3.2 MG/DL (0.3-1.2); BLOOD UREA NITROGEN 17 MG/DL (9-23); CALCIUM LEVEL 10.2 MG/DL (8.3-10.6); CARBON DIOXIDE LEVEL 29 MMOL/L (20-31); CHLORIDE LEVEL 103 MMOL/L (98-107); CHOLESTEROL LEVEL 143 MG/DL (<200); CHOLESTEROL RISK RATIO 2.52 (<5); CREATININE FOR GFR 0.82 MG/DL (0.70-1.30); GLOMERULAR FILTRATION RATE > 60.0 (>42); GLUCOSE, FASTING 107 MG/DL (74-106); HDL CHOLESTEROL 56.6 MG/DL (>40); LDL CHOLESTEROL 60.6 MG/DL (<100); MAGNESIUM LEVEL 1.7 MG/DL (1.8-2.4); NON-HDL-C 86.4 MG/DL; POTASSIUM SERUM 3.2 MMOL/L (3.5-5.1); SODIUM LEVEL 138 MMOL/L (136-145); TRIGLYCERIDES LEVEL 129 MG/DL (<150)
[2023-10-13] MEDS: CHLORTHALIDONE 25 MG TAB PO SCH (08:19)
[2023-10-13] MEDS: EZETIMIBE 10MG TABLET (ZETIA) PO SCH (08:19)
[2023-10-13] MEDS: LOSARTAN 50MG TABLET PO SCH (08:20)
[2023-10-13] MEDS: valACYclovir HCL 500 MG TAB PO SCH (08:20)
[2023-10-13] MEDS: ASCORBIC ACID 500 MG TAB PO SCH (08:20)
[2023-10-13] MEDS: POTASSIUM CHLORIDE 10MEQ SR TABLET PO SCH (08:21)
[2023-10-13] MEDS: SPIRONOLACTONE 12.5MG PER 1/2 TABLET PO SCH (08:22)
[2023-10-13] MEDS ORDERED: MECL-136 PO (10:28)
[2023-10-13] MEDS ORDERED: POTA-136 PO (11:20)
[2023-10-13] MEDS: POTASSIUM CHLORIDE 10MEQ SR TABLET PO ONE (11:28)
[2023-10-13] MEDS ORDERED: azaTHIOprine 10MG/ML SUSP *COMPOUNDED* 40ML BOTTLE PO SCH (21:00)
[2023-10-13] MEDS ORDERED: MAGNESIUM OXIDE 400MG TAB (MAG-OX) PO SCH (21:00)
== END 2023-10-13 12:01 | disposition home or self-care (01) ==
LOC: M ED 16:39 → EEVIPCON 16:40 → M ED INP 16:40 → M MS4PR 23:22
PROVIDERS: ADMIT Family Medicine; ATTEND Family Medicine
DX: R42 Dizziness and giddiness (principal); R06.02 Shortness of breath; I48.91 Unspecified atrial fibrillation; Z79.01 Long term (current) use of anticoagulants; I10 Essential (primary) hypertension; K51.90 Ulcerative colitis, unspecified, without complications; K21.9 Gastro-esophageal reflux disease without esophagitis; E87.6 Hypokalemia; N40.0 Benign prostatic hyperplasia without lower urinary tract symptoms; E78.5 Hyperlipidemia, unspecified; Z79.899 Other long term (current) drug therapy
CPT/HCPCS: 36415; 70450; 70496; 70498; 70544; 70551; 71045; 80047; 80048; 80053; 80061; 80076; 82550; 82553; 83036; 83735; 84484; 85025; 85027; 85379; 85610; 85730; 86850; 86900; 86901; 87486; 87581; 87633; 87798; 93005; 93041; 93970; 94760; 96374; 99285; G0378; J2250; J7500; Q9967

== ENCOUNTER → 2023-10-18 | Outpatient (CLI) | payer MEDICARE ==
[~2023-10-18] MED LIST changes: +AMLO1TAB25 PO; +ATOR80TA59 PO; +CENT1TAB PO; +D200CAP3 PO; +ELIQ5TAB PO; +FINA5TAB2 PO; +JARD1TAB PO; +LACT1CAP53 PO; +LOSA100T46 PO; +MAGN400T35 PO; +MECL-136 PO; +OMEP-173 PO; +POTA-136 PO; +VALT500T PO; +ZINC50TA26 PO
[2023-10-18 13:32] LABS: BLOOD UREA NITROGEN 20 MG/DL (9-23); CALCIUM LEVEL 10.4 MG/DL (8.3-10.6); CARBON DIOXIDE LEVEL 30 MMOL/L (20-31); CHLORIDE LEVEL 100 MMOL/L (98-107); CREATININE FOR GFR 0.98 MG/DL (0.70-1.30); GLOMERULAR FILTRATION RATE > 60.0 (>42); GLUCOSE, FASTING 112 MG/DL (74-106); MAGNESIUM LEVEL 1.6 MG/DL (1.8-2.4); POTASSIUM SERUM 3.6 MMOL/L (3.5-5.1); SODIUM LEVEL 138 MMOL/L (136-145)
== END ==
LOC: M WUC 10:07
PROVIDERS: ATTEND Internal Medicine
DX: E87.6 Hypokalemia (principal); E83.42 Hypomagnesemia

== ENCOUNTER → 2023-10-31 | Outpatient (CLI) | payer MEDICARE | LOC: M EKG 14:37 | PROVIDERS: ATTEND Physician Assistant | DX: R42 Dizziness and giddiness (principal); I48.91 Unspecified atrial fibrillation ==

== ENCOUNTER 2023-11-09 09:30 | Outpatient (CLI) | payer MEDICARE ==
[~2023-11-09] VITALS: Ht 175.3 cm; Wt 85.9 kg
[2023-11-09 09:30] VITALS: BP 150/75; O2SAT 96
[~2023-11-09 09:30] MED LIST changes: +ACETAMINOPHEN 650MG PO PRIOR TO INFUSION PO ONE; +NS 1,000 ML IV SCH; +diphenhydrAMINE 25MG IV PRIOR TO INFUSION IV ONE
[2023-11-09] MEDS: inFLIXimab INJECTION 400 MG in NS 210 ML IV ONE (10:12)
[2023-11-09 11:15] VITALS: BP 168/84; O2SAT 94
== END 2023-11-09 11:20 | disposition home or self-care (01) ==
LOC: M INFU 09:30
PROVIDERS: ATTEND Internal Medicine Gastroenterology
DX: K51.90 Ulcerative colitis, unspecified, without complications (principal)
CPT/HCPCS: 96413; J1745

== ENCOUNTER 2024-01-04 09:42 | Outpatient (CLI) | payer MEDICARE ==
[2024-01-04] MEDS: diphenhydrAMINE 25MG PO PRIOR TO INFUSION PO ONE (09:30)
[2024-01-04] MEDS: ACETAMINOPHEN 650MG PO PRIOR TO INFUSION PO ONE (09:30)
[~2024-01-04 09:42] MED LIST changes: -ACETAMINOPHEN 650MG PO PRIOR TO INFUSION PO ONE; -diphenhydrAMINE 25MG IV PRIOR TO INFUSION IV ONE
[2024-01-04 09:45] VITALS: BP 133/70; O2SAT 96
[2024-01-04] MEDS: inFLIXimab INJECTION 400 MG in NS 210 ML IV ONE (10:36)
[2024-01-04 11:45] VITALS: BP 142/68; O2SAT 99
== END 2024-01-04 11:45 | disposition home or self-care (01) ==
LOC: M INFU 09:42
PROVIDERS: ATTEND Internal Medicine Gastroenterology
DX: K51.90 Ulcerative colitis, unspecified, without complications (principal)
CPT/HCPCS: 96413; J1745

== ENCOUNTER → 2024-02-28 | Outpatient (CLI) | payer MEDICARE ==
[~2024-02-28] MED LIST changes: -NS 1,000 ML IV SCH
== END ==
LOC: M WUC 09:49
PROVIDERS: ATTEND Internal Medicine Gastroenterology
DX: R05.9 Cough, unspecified (principal)

== ENCOUNTER → 2024-02-28 | Outpatient (CLI) | payer MEDICARE ==
[2024-02-28 13:04] LABS: HEMATOCRIT 41.5 % (42.0-52.0); HEMOGLOBIN 14.7 g/dl (13.5-17.5); MEAN CORPUSCULAR HEMOGLOBIN 32.8 pg (27.0-33.0); MEAN CORPUSCULAR HGB CONC 35.4 g/dl (32.0-36.5); MEAN CORPUSCULAR VOLUME 92.6 fl (80.0-96.0); PLATELET COUNT, AUTOMATED 222 10^3/uL (150-450); RED BLOOD COUNT 4.48 10^6/uL (4.30-6.10); WHITE BLOOD COUNT 5.2 10^3/uL (4.0-10.0)
[2024-02-28 13:07] LABS: ALBUMIN 4.1 G/DL (3.2-5.2); ALKALINE PHOSPHATASE 60 U/L (40-129); ALT/SGPT 48 U/L (7.0-40); AST/SGOT 31 U/L (<34); BILIRUBIN,TOTAL 1.7 MG/DL (0.3-1.2); BLOOD UREA NITROGEN 21 MG/DL (9-23); C REACTIVE PROTEIN QUANTITATIV < 0.50 MG/DL (<1.0); CALCIUM LEVEL 10.7 MG/DL (8.3-10.6); CARBON DIOXIDE LEVEL 30 MMOL/L (20-31); CHLORIDE LEVEL 101 MMOL/L (98-107); CREATININE FOR GFR 1.01 MG/DL (0.70-1.30); GLOMERULAR FILTRATION RATE > 60.0 (>42); GLUCOSE, FASTING 134 MG/DL (74-106); POTASSIUM SERUM 3.6 MMOL/L (3.5-5.1); SODIUM LEVEL 139 MMOL/L (136-145); TOTAL PROTEIN 7.8 G/DL (5.7-8.2)
[2024-02-28 13:15] LABS: ERYTHROCYTE SEDIMENTATION RATE 14 mm/hr (0-20)
[2024-03-01 12:12] LABS: QuantiFERON-TB Gold Plus NEGATIVE (NEGATIVE)
== END ==
LOC: M WUC 09:47
DX: K51.50 Left sided colitis without complications (principal); K52.9 Noninfective gastroenteritis and colitis, unspecified; K21.9 Gastro-esophageal reflux disease without esophagitis; R05.9 Cough, unspecified; Z79.899 Other long term (current) drug therapy; Z86.0100 Personal history of colon polyps, unspecified

== ENCOUNTER 2024-02-29 09:38 | Outpatient (CLI) | payer MEDICARE ==
[~2024-02-29] VITALS: Ht 175.3 cm; Wt 87.2 kg
[~2024-02-29 09:38] MED LIST changes: +NS (Normal Saline) 0.9% 1,000 ML IV SCH
[2024-02-29 09:40] VITALS: BP 137/75; O2SAT 97
[2024-02-29] MEDS: diphenhydrAMINE 50MG/ML VIAL IV ONE (10:04)
[2024-02-29] MEDS: inFLIXimab INJECTION 400 MG in NS 210 ML IV ONE (10:04)
[2024-02-29] MEDS: ACETAMINOPHEN 650MG PO PRIOR TO INFUSION PO ONE (10:04)
[2024-02-29 11:43] VITALS: BP 145/77; O2SAT 96
== END 2024-02-29 11:43 ==
LOC: M INFU 09:38
PROVIDERS: ATTEND Internal Medicine Gastroenterology
DX: K51.90 Ulcerative colitis, unspecified, without complications (principal)
CPT/HCPCS: 96413; J1745

== ENCOUNTER 2024-04-25 09:43 | Outpatient (CLI) | payer MEDICARE ==
[~2024-04-25] VITALS: Ht 175.3 cm; Wt 87.3 kg
[~2024-04-25 09:43] MED LIST changes: +ACETAMINOPHEN 650MG PO PRIOR TO INFUSION PO ONE; +diphenhydrAMINE 25MG IV PRIOR TO INFUSION IV ONE
[2024-04-25 09:50] VITALS: BP 169/79; O2SAT 96
[2024-04-25] MEDS: inFLIXimab INJECTION 400 MG in NS 210 ML IV ONE (11:02)
[2024-04-25 12:05] VITALS: BP 161/84; O2SAT 95
== END 2024-04-25 12:05 ==
LOC: M INFU 09:43
PROVIDERS: ATTEND Internal Medicine Gastroenterology
DX: K51.919 Ulcerative colitis, unspecified with unspecified complications (principal)
CPT/HCPCS: 96413; J1745

== ENCOUNTER 2024-06-20 09:30 | Outpatient (CLI) | payer MEDICARE ==
[~2024-06-20] VITALS: Ht 175.3 cm; Wt 91.4 kg
[2024-06-20 09:30] VITALS: BP 158/88; O2SAT 97
[2024-06-20] MEDS: inFLIXimab INJECTION 400 MG in NS 210 ML IV ONE (10:27)
[2024-06-20 11:35] VITALS: BP 152/84; O2SAT 95
== END 2024-06-20 11:35 | disposition home or self-care (01) ==
LOC: M INFU 09:30
PROVIDERS: ATTEND Internal Medicine Gastroenterology
DX: K51.919 Ulcerative colitis, unspecified with unspecified complications (principal)
CPT/HCPCS: 96413; J1745

== ENCOUNTER 2024-08-22 08:05 | Outpatient (CLI) | payer MEDICARE ==
[~2024-08-22] VITALS: Ht 175.3 cm; Wt 88.6 kg
[2024-08-22] MEDS: diphenhydrAMINE 25MG IV PRIOR TO INFUSION IV ONE (08:00)
[2024-08-22] MEDS: ACETAMINOPHEN 650MG PO PRIOR TO INFUSION PO ONE (08:00)
[~2024-08-22 08:05] MED LIST changes: -ACETAMINOPHEN 650MG PO PRIOR TO INFUSION PO ONE; -NS (Normal Saline) 0.9% 1,000 ML IV SCH; -diphenhydrAMINE 25MG IV PRIOR TO INFUSION IV ONE
[2024-08-22 08:10] VITALS: BP 145/76; O2SAT 97
[2024-08-22] MEDS: inFLIXimab INJECTION 400 MG in NS 210 ML IV ONE (09:05)
[2024-08-22 10:10] VITALS: BP 145/73; O2SAT 97
== END 2024-08-22 10:10 ==
LOC: M INFU 08:05
PROVIDERS: ATTEND Internal Medicine Gastroenterology
DX: K51.50 Left sided colitis without complications (principal)
CPT/HCPCS: 96413; J1745

== ENCOUNTER → 2024-09-02 | Outpatient (CLI) | payer MEDICARE ==
[2024-09-02 12:37] LABS: PLATELET COUNT, AUTOMATED 209 10^3/uL (150-450)
[2024-09-02 12:44] LABS: ERYTHROCYTE SEDIMENTATION RATE 13 mm/hr (0-20)
[2024-09-02 13:07] LABS: ALT/SGPT 41 U/L (7.0-40); AST/SGOT 34 U/L (<34); C REACTIVE PROTEIN QUANTITATIV < 0.50 MG/DL (<1.0); CALCIUM LEVEL 9.8 MG/DL (8.3-10.6); CARBON DIOXIDE LEVEL 29 MMOL/L (20-31); CHLORIDE LEVEL 99 MMOL/L (98-107); CREATININE FOR GFR 0.85 MG/DL (0.70-1.30); GLOMERULAR FILTRATION RATE > 90.0 (>42); POTASSIUM SERUM 3.7 MMOL/L (3.5-5.1); SODIUM LEVEL 141 MMOL/L (136-145)
== END ==
LOC: M WUC 09:15
DX: K51.50 Left sided colitis without complications (principal); K22.70 Barrett's esophagus without dysplasia; K21.9 Gastro-esophageal reflux disease without esophagitis; Z79.899 Other long term (current) drug therapy; R49.0 Dysphonia

== ENCOUNTER → 2024-09-19 | Outpatient (CLI) | payer MEDICARE | LOC: M RAD 13:06 | PROVIDERS: ATTEND Internal Medicine | DX: R04.2 Hemoptysis (principal); K80.20 Calculus of gallbladder without cholecystitis without obstruction; R91.8 Other nonspecific abnormal finding of lung field ==

== ENCOUNTER → 2024-09-23 | Outpatient (CLI) | payer MEDICARE ==
[2024-09-23 12:59] LABS: C REACTIVE PROTEIN QUANTITATIV < 0.50 MG/DL (<1.0)
[2024-09-23 13:01] LABS: FREE T4 1.25 NG/DL (0.89-1.76)
[2024-09-23 13:30] LABS: RHEUMATOID FACTOR QUANT < 3.5 IU/ML (<14)
[2024-09-25 13:06] LABS: RNP ANTIBODY <1.0 NEG AI (<1.0 NEG); SSA SJOGRENS A <1.0 NEG AI (<1.0 NEG); SSB SJOGRENS B <1.0 NEG AI (<1.0 NEG)
== END ==
LOC: M WUC 09:33
PROVIDERS: ATTEND Internal Medicine Pulmonary Disease
DX: R04.2 Hemoptysis (principal); Z79.899 Other long term (current) drug therapy

== ENCOUNTER 2024-10-09 06:13 | Day surgery (SDC) | payer MEDICARE ==
[~2024-10-09] VITALS: Ht 175.3 cm; Wt 88.0 kg
[~2024-10-09 06:13] MED LIST changes: +AMLO1TAB24 PO; +CARV25TA PO; +OMEP40CA4 PO
[2024-10-09] MEDS: LR 1,000 ML IV SCH (06:50)
[2024-10-09] MEDS: LIDOCAINE PRES-FREE 2% 10 ML AMP INH ONE (06:54)
[2024-10-09] MEDS: ALBUTEROL SULFATE 2.5 MG/0.5 ML INH CONCENTRATE NEB SOLN INH ONE (06:54)
[2024-10-09] MEDS ORDERED: ONDANSETRON 4MG 2ML VIAL As Ordered ONE (07:12)
[2024-10-09] MEDS ORDERED: MIDAZOLAM INJ 2 MG/2 ML VIAL As Ordered ONE (07:12)
[2024-10-09] MEDS ORDERED: ROCURONIUM BROMIDE 50MG/5ML VIAL As Ordered ONE (07:12)
[2024-10-09] MEDS ORDERED: LIDOCAINE 2% 100 MG/5 ML SDV (FOR ANES.) As Ordered ONE (07:12)
[2024-10-09] MEDS ORDERED: dexAMETHasone 4 MG/ML 1 ML VIAL As Ordered ONE (07:13)
[2024-10-09] MEDS ORDERED: SUGAMMADEX SODIUM 500 MG/5 ML VIAL As Ordered ONE (07:13)
[2024-10-09] MEDS ORDERED: dexmedeTOMIDine (4 MCG/ML) 200 MCG/50 ML BTL As Ordered ONE (07:13)
[2024-10-09] MEDS: EPINEPHrine 1 MG/10 ML SYRINGE 1.5IN As Ordered ONE (07:13)
[2024-10-09] MEDS ORDERED: ACETAMINOPHEN 1000MG/100ML IV BAG As Ordered ONE (07:17)
[2024-10-09] MEDS: CETACAINE SPRAY 5 GM As Ordered ONE (07:44)
[2024-10-09 09:33] VITALS: BP 136/74; TEMP 97.2; O2SAT 96
[2024-10-13 03:48] LABS: ASPERGILLUS AG BAL INDEX 0.09 (<0.50); ASPERGILLUS GALACTOMANNAN AG Not Detected (Not Detected)
== END 2024-10-09 09:52 | disposition home or self-care (01) ==
LOC: M SDC 06:13
PROVIDERS: ATTEND Internal Medicine Pulmonary Disease
DX: J42 Unspecified chronic bronchitis (principal); R04.2 Hemoptysis; J47.9 Bronchiectasis, uncomplicated; J45.909 Unspecified asthma, uncomplicated; I48.20 Chronic atrial fibrillation, unspecified; I10 Essential (primary) hypertension; E78.00 Pure hypercholesterolemia, unspecified; R73.03 Prediabetes; I25.10 Atherosclerotic heart disease of native coronary artery without angina pectoris; N40.0 Benign prostatic hyperplasia without lower urinary tract symptoms; K51.90 Ulcerative colitis, unspecified, without complications; Z79.899 Other long term (current) drug therapy; Z79.01 Long term (current) use of anticoagulants; Z79.84 Long term (current) use of oral hypoglycemic drugs; Z86.73 Personal history of transient ischemic attack (TIA), and cerebral infarction without residual deficits; Z87.891 Personal history of nicotine dependence; K21.9 Gastro-esophageal reflux disease without esophagitis
CPT/HCPCS: 31624; 31625; 71045; 87070; 87102; 87116; 87205; 87206; 87305; 87449; 88305; J0131; J1100; J2250; J2405; J3010

== ENCOUNTER 2024-10-17 09:54 | Outpatient (CLI) | payer MEDICARE ==
[~2024-10-17] VITALS: Ht 175.3 cm; Wt 88.1 kg
[2024-10-17] MEDS: ACETAMINOPHEN 650MG PO PRIOR TO INFUSION PO ONE (10:00)
[2024-10-17] MEDS ORDERED: NS (Normal Saline) 0.9% 1,000 ML IV SCH (10:00)
[2024-10-17 10:14] VITALS: BP 139/79; O2SAT 97
[2024-10-17] MEDS: inFLIXimab INJECTION 400 MG in NS 210 ML IV ONE (11:05)
[2024-10-17] MEDS: diphenhydrAMINE 25MG PO PRIOR TO INFUSION PO ONE (11:07)
[2024-10-17 12:03] VITALS: BP 142/76; O2SAT 96
[2024-10-17 12:05] VITALS: BP 142/76; TEMP 37; O2SAT 96
== END 2024-10-17 12:05 | disposition home or self-care (01) ==
LOC: M INFU 09:54
PROVIDERS: ATTEND Internal Medicine Gastroenterology
DX: K51.50 Left sided colitis without complications (principal)
CPT/HCPCS: 96413; J1745

== ENCOUNTER → 2024-10-18 | Outpatient (CLI) | payer MEDICARE | LOC: M RAD 09:47 | PROVIDERS: ATTEND Internal Medicine Pulmonary Disease | DX: R04.2 Hemoptysis (principal) ==

== ENCOUNTER → 2024-10-30 | Outpatient (REF) | payer MEDICARE ==
[~2024-10-30] MED LIST changes: -SILD20TA11 PO; +SILD20TA64 PO
[2024-10-30 19:31] LABS: BASO # 0.0 10^3/uL (0.0-0.2); BASO % 0.4 % (0.0-1.0); EOS # 0.1 10^3/uL (0.0-0.5); EOS % 2.6 % (0.0-3.0); LYMPH # 1.4 10^3/uL (1.5-5.0); LYMPH % 31.4 % (24.0-44.0); MONO # 0.7 10^3/uL (0.0-0.8); MONO % 16.0 % (2.0-8.0); NEUTROPHILS # 2.3 10^3/uL (1.5-8.5); NEUTROPHILS % 49.4 % (36.0-66.0); PLATELET COUNT, AUTOMATED 234 10^3/uL (150-450)
[2024-11-04 15:27] LABS: BERMUDA GRASS IGE < 0.10 kU/L (<0.10); BIRCH IGE < 0.10 kU/L (<0.10); COMMON RAGWEED SHORT IGE 0.12 kU/L (<0.10); D001 IGE D PTERONYSSINUS 0.39 kU/L (<0.10); D002-IGE D FARINAE 0.28 kU/L (<0.10); E001-IGE CAT DANDER < 0.10 kU/L (<0.10); E005-IGE DOG DANDER < 0.10 kU/L (<0.10); ELM IGE < 0.10 kU/L (<0.10); I006 IGE COCKROACH < 0.10 kU/L (<0.10); IMMUNOGLOBULIN E FOR ALLERGENS 53 kU/L (<OR=114); M006 IGE ALTERNIA ALTERNATA 0.10 kU/L (<0.10); M1-PENICILLIUM NOTATUM < 0.10 kU/L (<0.10); MOUSE URINE IGE < 0.10 kU/L (<0.10); MUGWORT IGE < 0.10 kU/L (<0.10); OAK IGE < 0.10 kU/L (<0.10); ROUGH PIGWEED IGE < 0.10 kU/L (<0.10); SHEEP SORREL IGE < 0.10 kU/L (<0.10); T001-IGE MAPLE BOX ELDER < 0.10 kU/L (<0.10); T006-IGE MOUNTAIN CEDAR < 0.10 kU/L (<0.10); T014 COTTONWOOD IGE < 0.10 kU/L (<0.10); TIMOTHY GRASS IGE < 0.10 kU/L (<0.10); WALNUT TREE IGE < 0.10 kU/L (<0.10); WHITE ASH IGE < 0.10 kU/L (<0.10); WHITE MULBERRY IGE < 0.10 kU/L (<0.10)
== END ==
LOC: M LAB REF 13:53
PROVIDERS: ATTEND Internal Medicine Pulmonary Disease
DX: J45.20 Mild intermittent asthma, uncomplicated (principal)

== ENCOUNTER 2024-11-28 10:12 | Outpatient (CLI) | payer MEDICARE ==
[~2024-11-28] VITALS: Ht 175.3 cm; Wt 86.3 kg
[2024-11-28 09:50] VITALS: BP 144/82; O2SAT 96
[~2024-11-28 10:12] MED LIST changes: +NS (Normal Saline) 0.9% 1,000 ML IV SCH; +diphenhydrAMINE 25MG PO PRIOR TO INFUSION PO ONE
[2024-11-28] MEDS: inFLIXimab INJECTION 400 MG in NS 210 ML IV ONE (11:03)
== END 2024-11-28 12:15 ==
LOC: M INFU 10:12
PROVIDERS: ATTEND Internal Medicine Gastroenterology
DX: K51.50 Left sided colitis without complications (principal)
CPT/HCPCS: 96413; J1745

== ENCOUNTER → 2024-12-18 | Outpatient (CLI) | payer MEDICARE ==
[~2024-12-18] MED LIST changes: -NS (Normal Saline) 0.9% 1,000 ML IV SCH; -diphenhydrAMINE 25MG PO PRIOR TO INFUSION PO ONE
== END ==
LOC: M WUC 10:05
PROVIDERS: ATTEND Internal Medicine Pulmonary Disease
DX: R04.2 Hemoptysis (principal)

== ENCOUNTER → 2025-01-13 | Outpatient (CLI) | payer MEDICARE | LOC: M PLAIMG 08:29 | PROVIDERS: ATTEND Internal Medicine Pulmonary Disease | DX: R04.2 Hemoptysis (principal) ==

== ENCOUNTER 2025-01-30 12:03 | Outpatient (CLI) | payer MEDICARE ==
[~2025-01-30] VITALS: Ht 175.3 cm; Wt 88.6 kg
[~2025-01-30 12:03] MED LIST changes: +NS (Normal Saline) 0.9% 1,000 ML IV SCH; +diphenhydrAMINE 25MG PO PRIOR TO INFUSION PO ONE
[2025-01-30 12:15] VITALS: BP 158/74; O2SAT 95
[2025-01-30] MEDS: inFLIXimab INJECTION 400 MG in NS 210 ML IV ONE (13:21)
[2025-01-30 14:22] VITALS: BP 136/86; O2SAT 98
== END 2025-01-30 14:22 | disposition home or self-care (01) ==
LOC: M INFU 12:03
PROVIDERS: ATTEND Internal Medicine Gastroenterology
DX: K51.50 Left sided colitis without complications (principal)
CPT/HCPCS: 96413; J1745